=== PATIENT | male | born 1955 | race African-American/Black ===

== ENCOUNTER 2017-10-07 20:57 | Inpatient (IN) ==
[2017-10-07] MEDS ORDERED: Ipratropium/Albuterol Neb 3 ML IH ONE (21:13)
[2017-10-07] MEDS ORDERED: methylPREDNISolone 125 MG/2 ML VIAL IVP ONE (21:13)
--- NOTE | 2017-10-07 21:13 | Emergency Department Note ---
Disposition Clinical Impression: Acute exacerbation of chronic obstructive airways disease Community acquired pneumonia Qualifiers: Laterality: unspecified laterality Qualified Code(s): J18.9 - Pneumonia, unspecified organism Disposition: Admitted As Inpatient Condition: Good Referrals: Jourdan Sharma MD [Primary Care Provider] - Forms: ED Satisfaction Letter Time of Disposition: 21:56 SOB HPI - General Chief Complaint: ED Shortness of Breath/Dyspnea Stated Complaint: ashely Time Seen by Provider: 10/07/17 21:10 Source: patient Limitations: no limitations Nursing Notes Reviewed: Yes Vital Signs Reviewed: Yes - History of Present Illness 61-year-old with history COPD comes in with increasing shortness of breath. Pt Subjective Complaint: shortness of breath, cough Onset (ago): week(s) Context: recent illness Severity: moderate Consistency/Duration: constant Improves with: nothing Worsens with: exertion Known history of: COPD Associated symptoms: Reports: cough Treatment prior to arrival: none Cough present: Yes Cough Description: Involuntary Cough Frequency: Intermittent - Related Data Previous Rx's Medication Instructions Recorded Albuterol Sulfate [Proair Hfa] 1 puff IH Q6H #1 inh 06/05/16 Azithromycin [Azithromycin 6-Tab 250 mg PO PER PKG DI #6 tab 06/05/16 Pack] Levofloxacin [Levaquin] 750 mg PO DAILY #7 tablet 06/05/16 predniSONE [PredniSONE] 20 mg PO BIDWM #10 tablet 06/05/16 DiphenhydraMINE [Benadryl] 25 mg PO Q6HR #30 capsule 06/21/16 Naproxen [Naprosyn] 500 mg PO BID #20 tablet 06/21/16 cephALEXin [Keflex] 500 mg PO QID #40 capsule 06/21/16 traMADol [Ultram] 50 mg PO Q6HR #12 tablet 06/21/16 Albuterol Sulfate [Albuterol 1 - 2 puff IH Q6HR #1 hfa.aer.ad 10/14/16 Inhaler] Azithromycin [Azithromycin 6-Tab 250 mg PO PER PKG DI #6 tab 10/14/16 Pack] predniSONE [PredniSONE] 60 mg PO DAILY 5 Days tablet 10/14/16 Benzonatate [Tessalon] 100 mg PO TID #10 capsule 11/01/16 HYDROcodone BIT/Homatropine LQ 5 mg PO HS #30 syrup 11/01/16 [Hycodan Syrup] predniSONE [Prednisone] 50 mg PO DAILY #5 tablet 11/01/16 Albuterol Sulfate [Albuterol 2 puff IH Q4HR #1 hfa.aer.ad 12/12/16 Inhaler] Levofloxacin [Levaquin] 750 mg PO DAILY #5 tablet 12/12/16 predniSONE [PredniSONE] 40 mg PO DAILY #10 tablet 12/12/16 Clindamycin HCl 300 mg PO TID #21 capsule 02/09/17 HYDROcodone/Acet 5/325 mg [[place] 1 tab PO Q6H PRN #10 tab 02/09/17 5-325 mg] Ondansetron HCl [Zofran] 4 mg PO Q8HR #12 tablet 05/28/17 Polymyxn-B/Trimeth Opth Drops 2 drop RIGHT EYE QID 7 Days bottle 07/28/17 [Polytrim Opth Drops] Albuterol Sulfate [Albuterol 2 puff IH Q4HR PRN #1 inhaler 09/18/17 Inhaler] Azithromycin [Azithromycin 6-Tab 250 mg PO PER PKG DI #6 tab 09/18/17 Pack] PredniSONE [Deltasone] 20 mg PO BID #10 tablet 09/18/17 Benzonatate [Tessalon] 100 mg PO TID PRN #15 capsule 09/30/17 Ibuprofen 800 mg PO Q8H PRN #12 tablet 09/30/17 Allergies Allergy/AdvReac Type Severity Reaction Status Date / Time aspirin Allergy Hives Verified 09/18/17 11:36 All systems ED: reviewed and negative except as stated. Constitutional: Denies: fever, chills, weakness, weight change Eyes: Denies: eye pain, eye discharge, vision change ENT ED: Denies: ear pain, throat pain, dental pain, hearing loss, epistaxis, congestion, dysphagia Cardiovascular: Denies: chest pain, palpitations, dyspnea on exertion, edema, syncope Respiratory: Reports: cough, dyspnea, wheezes. Denies: hemoptysis, stridor Gastrointestinal: Denies: abdominal pain, nausea, vomiting, diarrhea, constipation, hematemesis, melena, hematochezia Genitourinary: Denies: urgency, dysuria, frequency, hematuria Musculoskeletal: Denies: back pain, neck pain, arthralgia, myalgia Integumentary: Denies: rash, abrasion, lesions Neurological: Denies: headache, weakness, numbness, paresthesias, confusion, abnormal gait, vertigo Psychiatric: Denies: anxiety, depression, suicidal thoughts, homicidal thoughts , auditory hallucinations, visual hallucinations Endocrine: Denies: fatigue Hematological/Lymphatic: Denies: easy bleeding, easy bruising Allergic/Immunologic: Denies: facial swelling, urticaria Past Medical History - Past Medical History Medical history: Reports: COPD, diabetes, GERD, hypertension Psychiatric history: Reports: no psych history - Social History Smoking Status: Current every day smoker Smokeless Tobacco Status: No Alcohol use: Reports: occasionally Drug use: Reports: none Physical Exam - General Limitations: no limitations General appearance: alert, in no apparent distress - Head Head exam: atraumatic, normocephalic, normal inspection - Eye Eye exam: Present: normal appearance, PERRL, EOMI - ENT ENT exam: normal exam, normal oropharynx, mucous membranes moist - Neck Neck exam: Present: normal inspection, full ROM, trachea midline - Chest Chest inspection: Present: normal inspection, symmetric chest wall rise - Respiratory Respiratory exam: Present: respiratory distress, wheezes - Cardiovascular Cardiovascular exam: Present: regular rate, normal rhythm, normal heart sounds - Abdominal Exam Abdominal exam: Present: soft, Non-Tender. Absent: tenderness, distention, guarding, rebound, rigidity - Extremities Exam Extremities exam: Present: normal inspection, full ROM. Absent: tenderness, pedal edema - Expanded Lower Extremity Exam Neurovascular/Tendon exam: Absent: motor deficit, sensory deficit, tendon deficit Gait: observed and normal - Back Exam Back exam: Present: normal inspection, full ROM. Absent: tenderness - Neurological Exam Neurological exam: Present: alert, oriented X3 - Psychiatric Psychiatric exam: Present: normal affect, normal mood - Skin Skin exam: Present: warm, dry, intact, normal color Course - Reevaluation(s) Reevaluation #1: The 11-year-old COPD cough congestion. Chest x-ray shows pneumonia white count 20 ,000 patient will be admitted for IV antibiotics. Time: 21:56 - Consultations Consultation #1: Discussed with , it. Time: 21:57 Vital Signs Temperature 98.1 F 10/07/17 21:06 Pulse Rate 114 10/07/17 21:06 Respiratory Rate 22 10/07/17 21:06 Blood Pressure 190/100 12/30/17 21:06 O2 Sat by Pulse Oximetry 93 10/07/17 21:06 Temperature 98.1 F 10/07/17 21:06 Pulse Rate 107 10/07/17 21:23 Respiratory Rate 18 10/07/17 21:23 Blood Pressure 181/99 10/07/17 21:23 O2 Sat by Pulse Oximetry 96 10/07/17 21:23 Oxygen Delivery Oxygen Delivery Room Air Shortness of Breath/Dyspnea - Lab Data Lab results reviewed: Yes I reviewed the patient's lab results. Result diagrams: 10/07/17 21:21 10/07/17 21:21 Lab Results 10/07/17 10/07/17 10/07/17 Range/Units 21:21 21:21 21:21 WBC 20.3 H (4.3-11.1) K/mcL RBC 4.83 (4.19-5.50) M/mcL Hgb 14.9 (12.9-16.9) g/dL Hct 46.4 (37.5-50.1) % MCV 96.1 (83.0-100.0) fL MCH 30.8 (28.0-33.3) pg MCHC 32.1 (31.6-35.5) g/dL RDW 12.5 (11.5-14.5) % Plt Count 190 (140-400) K/mcL MPV 9.5 (9.4-12.4) fL Immature Gran % 0.5 (0-4) % Seg Neutrophils % 89.5 % Lymphocytes % 4.1 % Monocytes % 4.9 % Eosinophils % 0.8 % Basophils % 0.2 % Neutrophils # 18.1 H (1.6-8.9) K/mcL Lymphocytes # 0.8 (0.6-4.6) K/mcL Monocytes # 1.0 (0.0-1.3) K/mcL Eosinophils # 0.2 (0.0-0.6) K/mcL Basophils # 0.1 (0.0-0.2) K/mcL Sodium 131 L (136-145) mEq/L Potassium 4.0 (3.5-5.1) mEq/L Chloride 102 (98-107) mEq/L Carbon Dioxide 23 (23-29) mEq/L BUN 11 (6-20) mg/dL Creatinine 0.99 (0.70-1.30) mg/dL Est GFR ( Amer) > 60 (> 60) Est GFR (Non-Af Amer) > 60 (> 60) BUN/Creatinine Ratio 11 (6-26) Glucose 163 H (70-105) mg/dL Calculated Osmolality 275 L (280-300) Lactic Acid 0.9 (0.5-2.2) mmol/L Calcium 8.9 (8.6-10.3) mg/dL Troponin I (< 0.04) ng/mL B-Natriuretic Peptide (Less than 100) pg/mL 10/07/17 10/07/17 Range/Units 21:21 21:21 WBC (4.3-11.1) K/mcL RBC (4.19-5.50) M/mcL Hgb (12.9-16.9) g/dL Hct (37.5-50.1) % MCV (83.0-100.0) fL MCH (28.0-33.3) pg MCHC (31.6-35.5) g/dL RDW (11.5-14.5) % Plt Count (140-400) K/mcL MPV (9.4-12.4) fL Immature Gran % (0-4) % Seg Neutrophils % % Lymphocytes % % Monocytes % % Eosinophils % % Basophils % % Neutrophils # (1.6-8.9) K/mcL Lymphocytes # (0.6-4.6) K/mcL Monocytes # (0.0-1.3) K/mcL Eosinophils # (0.0-0.6) K/mcL Basophils # (0.0-0.2) K/mcL Sodium (136-145) mEq/L Potassium (3.5-5.1) mEq/L Chloride (98-107) mEq/L Carbon Dioxide (23-29) mEq/L BUN (6-20) mg/dL Creatinine (0.70-1.30) mg/dL Est GFR ( Amer) (> 60) Est GFR (Non-Af Amer) (> 60) BUN/Creatinine Ratio (6-26) Glucose (70-105) mg/dL Calculated Osmolality (280-300) Lactic Acid (0.5-2.2) mmol/L Calcium (8.6-10.3) mg/dL Troponin I < 0.03 (< 0.04) ng/mL B-Natriuretic Peptide 31 (Less than 100) pg/mL - Radiology Data Radiology results reviewed: Yes I reviewed the patient's radiology results. Chest X-Ray 10/07/17 21:13 IMPRESSION: New mild right basilar airspace disease most consistent with pneumonia. D/ / Eulogio Lucas MD / Eulogio Lucas MD Interpreting Provider: Eulogio Lucas MD - EKG Data EKG attestation: Yes I reviewed and interpreted this EKG. EKG shows normal: Reports: sinus rhythm Rate: Reports: tachycardia Rhythm: Reports: NSR Interpretation: Reports: no acute changes
[2017-10-07 21:29] LABS: Basophils # 0.1 K/mcL (0.0-0.2); Basophils % 0.2 %; Eosinophils # 0.2 K/mcL (0.0-0.6); Eosinophils % 0.8 %; Hematocrit 46.4 % (37.5-50.1); Hemoglobin 14.9 g/dL (12.9-16.9); Immature Granulocytes % 0.5 % (0-4); Lymphocytes # 0.8 K/mcL (0.6-4.6); Lymphocytes % 4.1 %; Mean Corpuscular HGB Conc 32.1 g/dL (31.6-35.5); Mean Corpuscular Hemoglobin 30.8 pg (28.0-33.3); Mean Corpuscular Volume 96.1 fL (83.0-100.0); Mean Platelet Volume 9.5 fL (9.4-12.4); Monocytes % 4.9 %; Neutrophils # 18.1 K/mcL (1.6-8.9); Platelet Count 190 K/mcL (140-400); Red Blood Count 4.83 M/mcL (4.19-5.50); Red Cell Distribution Width 12.5 % (11.5-14.5); Segmented Neutrophils % 89.5 %
[2017-10-07 21:47] LABS: BUN/Creatinine Ratio 11 (6-26); Blood Urea Nitrogen 11 mg/dL (6-20); Calcium 8.9 mg/dL (8.6-10.3); Carbon Dioxide 23 mEq/L (23-29); Chloride 102 mEq/L (98-107); Glucose 163 mg/dL (70-105); Osmolality,Calculated 275 (280-300); Sodium 131 mEq/L (136-145); eGFR For African Americans > 60 (> 60); eGFR For Non-African Americans > 60 (> 60)
[2017-10-07] MEDS ORDERED: Azithromycin 500 MG in D5% in Water 250 ML IVPB ONE (21:55)
[2017-10-07] MEDS ORDERED: cefTRIAXone 1,000 MG in Water for inj. (sterile) 10 ML IVP ONE (21:55)
[2017-10-07] MEDS ORDERED: Ibuprofen 600 MG TABLET PO ONE (21:57)
[2017-10-07] MEDS ORDERED: *HR* HYDROcodone/Acet 5/325 mg TABLET PO PRN (22:41)
[2017-10-07] MEDS ORDERED: Naloxone 0.4 MG/ML INJ IVP PRN (22:47)
[2017-10-07] MEDS ORDERED: MOM Conc 10 ML UD.LIQ PO PRN (22:47)
[2017-10-07] MEDS ORDERED: Ondansetron 4 MG/2 ML VIAL IVP PRN (22:47)
[2017-10-07] MEDS ORDERED: Acetaminophen 325 MG TABLET PO PRN (22:47)
[2017-10-07] MEDS ORDERED: Mag Hydrox/Al Hydrox/Simeth 30 ML UDC PO PRN (22:47)
[2017-10-07] MEDS ORDERED: Ipratropium/Albuterol Neb 3 ML IH PRN (22:52)
[2017-10-07] MEDS ORDERED: Azithromycin 500 MG in D5% in Water 250 ML IVPB SCH (23:00)
--- NOTE | 2017-10-07 23:00 | Internal Med History&Physical ---
Date of Encounter: 10/07/17 Time of Encounter: 22:55 Assessment and Plan (1) Community acquired pneumonia Current visit: Yes Status: Acute - blood and sputum cx pending. - continue current abx with rocephin and zithromax. Qualifiers: Laterality: right Lung location: middle lobe of lung Qualified Code(s): J18.1 - Lobar pneumonia, unspecified organism (2) Acute exacerbation of chronic obstructive airways disease Current visit: Yes Status: Acute - IV stroid, bronchodilators. (3) HTN (hypertension) Current visit: No Status: Chronic - BP elevated, continue home meds and adjust meds as needed. Qualifiers: Hypertension type: essential hypertension Qualified Code(s): I10 - Essential (primary) hypertension Internal Medicine - H&P: HPI Admitted From: Emergency Dept Plans for Post Hospital Care: Home History of present illness: Mr. Galvez is a 61 year old male with past medical history of COPD and hypertension who presented to the ED with cough and shortness of breath for a week. Patient was seen in this hospital before [place] for this similar symptoms, ED workup did not show pneumonia, and she was discharged home with oral antibiotics for possible bronchitis. He stated his symptoms never went away with the prescribed medicine. Today he feel he has trouble breathing with worsening cough up yellow whitish mucus, he decided go to hospital. He denies fever, chills, night sweats. He has no chest pain, palpitation, or syncope. At the ED, chest x-ray revealed pneumonia, he will be admitted to the inpatient service for further management. Past Med Surg Social Fam HX - Past Medical History Medical history: COPD, diabetes, GERD, hypertension Psychiatric history: no psych history - Social History Smoking Status: Current every day smoker Smokeless Tobacco Status: No Alcohol use: occasionally Drug use: none Internal Medicine - H&P: Meds Albuterol Sulfate [Proair Hfa] 1 puff IH Q6H #1 inh 06/05/16 [Rx] Azithromycin [Azithromycin 6-Tab Pack] 250 mg PO PER PKG DI #6 tab 06/05/16 [Rx] Levofloxacin [Levaquin] 750 mg PO DAILY #7 tablet 06/05/16 [Rx] predniSONE [PredniSONE] 20 mg PO BIDWM #10 tablet 06/05/16 [Rx] DiphenhydraMINE [Benadryl] 25 mg PO Q6HR #30 capsule 06/21/16 [Rx] Naproxen [Naprosyn] 500 mg PO BID #20 tablet 06/21/16 [Rx] cephALEXin [Keflex] 500 mg PO QID #40 capsule 06/21/16 [Rx] traMADol [Ultram] 50 mg PO Q6HR #12 tablet 06/21/16 [Rx] Albuterol Sulfate [Albuterol Inhaler] 1 - 2 puff IH Q6HR #1 hfa.aer.ad 10/14/16 [Rx] Azithromycin [Azithromycin 6-Tab Pack] 250 mg PO PER PKG DI #6 tab 10/14/16 [Rx] predniSONE [PredniSONE] 60 mg PO DAILY 5 Days tablet 10/14/16 [Rx] Benzonatate [Tessalon] 100 mg PO TID #10 capsule 11/01/16 [Rx] HYDROcodone BIT/Homatropine LQ [Hycodan Syrup] 5 mg PO HS #30 syrup 11/01/16 [Rx ] predniSONE [Prednisone] 50 mg PO DAILY #5 tablet 11/01/16 [Rx] Albuterol Sulfate [Albuterol Inhaler] 2 puff IH Q4HR #1 hfa.aer.ad 12/12/16 [Rx] Levofloxacin [Levaquin] 750 mg PO DAILY #5 tablet 12/12/16 [Rx] predniSONE [PredniSONE] 40 mg PO DAILY #10 tablet 12/12/16 [Rx] Clindamycin HCl 300 mg PO TID #21 capsule 02/09/17 [Rx] HYDROcodone/Acet 5/325 mg [[place] 5-325 mg] 1 tab PO Q6H PRN #10 tab 02/09/17 [Rx ] Ondansetron HCl [Zofran] 4 mg PO Q8HR #12 tablet 05/28/17 [Rx] Polymyxn-B/Trimeth Opth Drops [Polytrim Opth Drops] 2 drop RIGHT EYE QID 7 Days bottle 07/28/17 [Rx] Albuterol Sulfate [Albuterol Inhaler] 2 puff IH Q4HR PRN #1 inhaler 09/18/17 [Rx ] Azithromycin [Azithromycin 6-Tab Pack] 250 mg PO PER PKG DI #6 tab 09/18/17 [Rx] PredniSONE [Deltasone] 20 mg PO BID #10 tablet 09/18/17 [Rx] Benzonatate [Tessalon] 100 mg PO TID PRN #15 capsule 09/30/17 [Rx] Ibuprofen 800 mg PO Q8H PRN #12 tablet 09/30/17 [Rx] 3 Allergy/AdvReac Type Severity Reaction Status Date / Time aspirin Allergy Hives Verified 09/18/17 11:36 All Systems PM: A 10-system review of systems was performed and is negative for pertinent findings except as documented above in the HPI. Review of systems: REVIEW OF SYSTEMS: CONSTITUTIONAL: No weight loss, fever, chills, weakness or fatigue. HEENT: Eyes: No visual loss, blurred vision, double vision or yellow sclerae. Ears, Nose, Throat: No hearing loss, sneezing, congestion, runny nose or sore throat. SKIN: No rash or itching. CARDIOVASCULAR: No chest pain, chest pressure or chest discomfort. No palpitations or edema. RESPIRATORY: see HPI. GASTROINTESTINAL: No anorexia, nausea, vomiting or diarrhea. No abdominal pain or blood. GENITOURINARY: No dysuria, urgency, or frequency. NEUROLOGICAL: No headache, dizziness, syncope, paralysis, ataxia, numbness or tingling in the extremities. No change in bowel or bladder control. MUSCULOSKELETAL: No muscle, back pain, joint pain or stiffness. HEMATOLOGIC: No anemia, bleeding or bruising. LYMPHATICS: No enlarged nodes. No history of splenectomy. PSYCHIATRIC: No history of depression or anxiety. ENDOCRINOLOGIC: No reports of sweating, cold or heat intolerance. No polyuria or polydipsia. - Constitutional Vitals: Temp Pulse Resp BP Pulse Ox 98.1 F 103 20 152/92 95 10/07/17 21:06 10/07/17 22:50 10/07/17 22:50 10/07/17 22:50 10/07/17 22:50 Exam: PHYSICAL EXAMINATION: GENERAL APPEARANCE: The patient is alert, oriented and in no acute distress. HEENT: Head is normocephalic. The sinuses are nontender. Pupils are equal and reactive. The nares are patent. Oropharynx clear without lesions. NECK: Supple without lymphadenopathy. HEART: Regular rate and rhythm. LUNGS: diffuse expiratory wheezes are heard. ABDOMEN: Soft, nontender, nondistended with good bowel sounds heard. Inguinal area is normal. EXTREMITIES: Without cyanosis, clubbing or edema. NEUROLOGICAL: Gross nonfocal. SKIN: Warm and dry without any rash. Internal Med - H&P Results - Labs CBC & Chem 7: 10/07/17 21:21 10/07/17 21:21 - Diagnostic Studies Chest x-ray Additional comments: SINGLE VIEW OF THE CHEST 10/07/2017 9:27 pm COMPARISON: 09/30/2017 HISTORY: ORDERING SYSTEM PROVIDED HISTORY: dyspnea FINDINGS: There is mild right basilar airspace disease, new/ increased from the prior study. Lungs are otherwise clear and the heart size is normal. No pneumothorax or pleural effusion. XR/XR chest 1V portable IMPRESSION: New mild right basilar airspace disease most consistent with pneumonia.
[2017-10-07] MEDS: *HR* Heparin 5,000 UNIT/ML VIAL SQ SCH (23:21)
[2017-10-08] MEDS: Ipratropium/Albuterol Neb 3 ML IH SCH ×6 (00:37→19:54)
[2017-10-08] MEDS ORDERED: *HR* Dextrose 50 % in Water (Syg) 50 ML SYRINGE IVP PRN (01:57)
[2017-10-08] MEDS ORDERED: D5% in Water 1,000 ML IVC PRN (01:57)
[2017-10-08] MEDS ORDERED: Dextrose Gel 15 GM/37.5 ML TUBE PO PRN ×2 (01:57)
[2017-10-08] MEDS ORDERED: Benzonatate 100 MG CAPSULE PO PRN (01:58)
[2017-10-08 02:33] LABS: Hematocrit 44.4 % (37.5-50.1); Hemoglobin 14.6 g/dL (12.9-16.9); Mean Corpuscular HGB Conc 32.9 g/dL (31.6-35.5); Mean Corpuscular Hemoglobin 31.2 pg (28.0-33.3); Mean Corpuscular Volume 94.9 fL (83.0-100.0); Mean Platelet Volume 9.7 fL (9.4-12.4); Platelet Count 182 K/mcL (140-400); Red Blood Count 4.68 M/mcL (4.19-5.50); Red Cell Distribution Width 12.6 % (11.5-14.5)
[2017-10-08 02:46] LABS: Alanine Aminotransferase 28 Units/L (7-52); Albumin 4.1 g/dL (3.5-5.7); Albumin/Globulin Ratio 1.2 (1.1-2.2); Alkaline Phosphatase 58 Units/L (34-104); Aspartate Amino Transferase 14 Units/L (13-39); BUN/Creatinine Ratio 12 (6-26); Bilirubin,Total 0.6 mg/dL (0.3-1.0); Blood Urea Nitrogen 12 mg/dL (6-20); Calcium 9.2 mg/dL (8.6-10.3); Carbon Dioxide 24 mEq/L (23-29); Chloride 100 mEq/L (98-107); Globulin 3.4 g/dL (2.4-3.5); Glucose 375 mg/dL (70-105); Osmolality,Calculated 289 (280-300); Sodium 132 mEq/L (136-145); Total Protein 7.5 g/dL (6.4-8.9); eGFR For African Americans > 60 (> 60); eGFR For Non-African Americans > 60 (> 60)
[2017-10-08 02:52] LABS: Hemoglobin A1C 5.9 %
[2017-10-08] MEDS: *HR* Heparin 5,000 UNIT/ML VIAL SQ SCH ×3 (05:11→22:16)
[2017-10-08] MEDS: methylPREDNISolone 125 MG/2 ML VIAL IVP SCH ×3 (05:11→22:17)
[2017-10-08] MEDS: *HR* Acetylcysteine 20% 600 MG/3 ML ORAL SYRINGE PO SCH ×2 (08:21→22:16)
[2017-10-08] MEDS: Insulin LISPRO 300 UNITS/3 ML VIAL SQ SCH ×4 (08:21→22:18)
[2017-10-08] MEDS: cefTRIAXone 1,000 MG in Water for inj. (sterile) 20 ML 10 ML IVP SCH (08:21)
--- NOTE | 2017-10-08 10:55 | Internal Med Progress Note ---
<Rocío Leo - Last Filed: 10/08/17 10:53> Date of Encounter: 10/08/17 Time of Encounter: 10:53 - Assessment and plan (1) Sepsis Current Visit: Yes Status: Acute Assessment and plan: Due to pneumonia Met sepsis criteria with tachycardia, tachypnea, neutrophilic leukocytosis Blood and sputum cultures pending Legionella and strep pneumoniae antigens pending Qualifiers: Sepsis type: sepsis due to unspecified organism Qualified Code(s): A41.9 - Sepsis, unspecified organism (2) Community acquired pneumonia Current Visit: Yes Status: Acute Assessment and plan: Chest x-ray shows new mild right basilar airspace disease most consistent with pneumonia Rocephin and azithromycin Qualifiers: Laterality: right Lung location: middle lobe of lung Qualified Code(s): J18.1 - Lobar pneumonia, unspecified organism (3) Acute exacerbation of chronic obstructive airways disease Current Visit: Yes Status: Acute Assessment and plan: Solu-Medrol 60 mg q8H duonebs q4H (4) HTN (hypertension) Current Visit: No Status: Chronic Assessment and plan: Chronic, stable Continue home medications Qualifiers: Hypertension type: essential hypertension Qualified Code(s): I10 - Essential (primary) hypertension - Subjective Interval history: The patient states he just finished a breathing treatment but he is still having wheezing. - Constitutional Vitals: Temp Pulse Resp BP Pulse Ox 97.6 F 103 16 146/80 95 10/08/17 07:01 10/08/17 07:01 10/08/17 07:45 10/08/17 07:01 10/08/17 07:45 General appearance: Present: A&O X 3, answers questions appropriately Exam: Patient with sweats, fan on in the room - Head Head exam: Present: atraumatic, normocephalic - Eye Eye exam: Present: PERRL, conjuntiva pink, sclera anicteric Pupils: Present: PERRL - Neck Neck exam general surgery: Present: supple, trachea midline - Respiratory Respiratory exam: Present: wheezes (Expiratory) Additional comments: Nasal cannula is lying on the bed next to patient - Cardiovascular Cardiovascular exam: Present: RRR, +S1, +S2. Absent: diastolic murmur, gallop, rubs, systolic murmur - GI/Abdominal GI/Abdominal exam: Present: normal bowel sounds, soft, no peritoneal signs. Absent: distended, tenderness - Extremities Exam Extremities exam: Present: warm. Absent: pedal edema, tenderness Additional comments: Posterior tibial pulses palpable and symmetric - Neurological Exam Neurological exam: Present: CN II-XII intact, oriented X3, no focal deficits. Absent: pronater drift, facial droop, speech deficit - Skin Skin exam: Present: dry, intact Internal Medicine: Result - Labs CBC & Chem 7: 10/08/17 02:22 10/08/17 02:22 Labs: Short CBC 10/08/17 Range/Units 02:22 WBC 21.5 H (4.3-11.1) K/mcL Hgb 14.6 (12.9-16.9) g/dL Hct 44.4 (37.5-50.1) % Plt Count 182 (140-400) K/mcL BMP 10/08/17 02:22 Sodium 132 L Potassium 4.0 Chloride 100 Carbon Dioxide 24 BUN 12 Creatinine 1.04 Glucose 375 H Calcium 9.2 Liver Function 10/08/17 Range/Units 02:22 Total Bilirubin 0.6 (0.3-1.0) mg/dL AST 14 (13-39) Units/L ALT 28 (7-52) Units/L Alkaline Phosphatase 58 (34-104) Units/L Albumin 4.1 (3.5-5.7) g/dL Consult Discharge Plan - Plan Referrals: Jourdan Sharma MD [Primary Care Provider] - <Noman Batista - Last Filed: 10/08/17 19:10> Date of Encounter: 10/08/17 - Assessment and plan (1) Sepsis Current Visit: Yes Status: Suspected Qualifiers: Sepsis type: Pneumococcus Qualified Code(s): A40.3 - Sepsis due to Streptococcus pneumoniae (2) Community acquired pneumonia Current Visit: Yes Status: Acute Qualifiers: Laterality: right Lung location: middle lobe of lung Qualified Code(s): J18.1 - Lobar pneumonia, unspecified organism (3) HTN (hypertension) Current Visit: No Status: Chronic Qualifiers: Hypertension type: essential hypertension Qualified Code(s): I10 - Essential (primary) hypertension (4) Acute exacerbation of chronic obstructive airways disease Current Visit: Yes Status: Acute (5) Diabetes Current Visit: Yes Status: Acute Qualifiers: Diabetes mellitus type: type 2 Diabetes mellitus complication status: with unspecified complications Diabetes mellitus medical terminologist insulin use: unspecified long-term insulin use status Qualified Code(s): E11.8 - Type 2 diabetes mellitus with unspecified complications - Constitutional Vitals: Temp Pulse Resp BP Pulse Ox 97.8 F 114 17 144/87 95 10/08/17 18:12 10/08/17 18:12 10/08/17 18:12 10/08/17 18:12 10/08/17 18:12 Internal Medicine: Result - Labs CBC & Chem 7: 10/08/17 02:22 10/08/17 02:22 Labs: Short CBC 10/08/17 Range/Units 02:22 WBC 21.5 H (4.3-11.1) K/mcL Hgb 14.6 (12.9-16.9) g/dL Hct 44.4 (37.5-50.1) % Plt Count 182 (140-400) K/mcL BMP 10/08/17 02:22 Sodium 132 L Potassium 4.0 Chloride 100 Carbon Dioxide 24 BUN 12 Creatinine 1.04 Glucose 375 H Calcium 9.2 Liver Function 10/08/17 Range/Units 02:22 Total Bilirubin 0.6 (0.3-1.0) mg/dL AST 14 (13-39) Units/L ALT 28 (7-52) Units/L Alkaline Phosphatase 58 (34-104) Units/L Albumin 4.1 (3.5-5.7) g/dL - Attending Attestation I examined this patient and my medical decision-making was reviewed with the Resident Physician on 10/08/17. I agree with the documented findings, disposition and treatment plan as described except to the extent set forth below. Mr Galvez is currently admitted for sepsis related to pneumonia. He remains moderate to high risk due to potential for worsening respiratory status. Mr Galvez is resting comfortably. No pain at this time. Breathing is OK. Heart rate doing better. No GI issues. Exam Alert. Comfortable Mucus membranes dry Heart reg Scant wheeze Abd soft I/P 1. Sepsis 2. PNA Further diagnoses and plan as above.
[2017-10-08] MEDS ORDERED: Azithromycin 500 MG in D5% in Water 250 ML IVPB SCH (21:00)
[2017-10-08] MEDS: Insulin DETEMIR 100 UNIT/ML X5UNITS SQ SCH (22:17)
[2017-10-08] MEDS: Nicotine 21 MG PATCH.TD24 TD SCH (22:22)
[2017-10-08] MEDS: Azithromycin 250 MG TABLET PO SCH (23:34)
[2017-10-09] MEDS: Ipratropium/Albuterol Neb 3 ML IH SCH ×4 (00:01→11:13)
[2017-10-09] MEDS: *HR* Heparin 5,000 UNIT/ML VIAL SQ SCH ×3 (05:09→22:15)
[2017-10-09] MEDS: methylPREDNISolone 125 MG/2 ML VIAL IVP SCH ×3 (05:09→22:15)
[2017-10-09 06:11] LABS: Basophils % 0.1 %; Hematocrit 42.4 % (37.5-50.1); Hemoglobin 13.8 g/dL (12.9-16.9); Immature Granulocytes % 0.6 % (0-4); Lymphocytes # 0.4 K/mcL (0.6-4.6); Lymphocytes % 1.9 %; Mean Corpuscular HGB Conc 32.5 g/dL (31.6-35.5); Mean Corpuscular Hemoglobin 30.9 pg (28.0-33.3); Mean Corpuscular Volume 94.9 fL (83.0-100.0); Mean Platelet Volume 10.2 fL (9.4-12.4); Monocytes # 0.5 K/mcL (0.0-1.3); Monocytes % 2.4 %; Neutrophils # 18.6 K/mcL (1.6-8.9); Platelet Count 206 K/mcL (140-400); Red Blood Count 4.47 M/mcL (4.19-5.50); Red Cell Distribution Width 12.5 % (11.5-14.5)
[2017-10-09 06:26] LABS: BUN/Creatinine Ratio 15 (6-26); Blood Urea Nitrogen 16 mg/dL (6-20); Calcium 9.2 mg/dL (8.6-10.3); Carbon Dioxide 26 mEq/L (23-29); Chloride 101 mEq/L (98-107); Glucose 365 mg/dL (70-105); Osmolality,Calculated 298 (280-300); Potassium 4.1 mEq/L (3.5-5.1); Sodium 136 mEq/L (136-145); eGFR For African Americans > 60 (> 60); eGFR For Non-African Americans > 60 (> 60)
[2017-10-09] MEDS ORDERED: amLODIPine 5 MG TABLET PO ONE (08:36)
[2017-10-09] MEDS: Nicotine 21 MG PATCH.TD24 TD SCH (10:08)
[2017-10-09] MEDS: Lisinopril 20 MG TABLET PO SCH (10:08)
[2017-10-09] MEDS: Azithromycin 250 MG TABLET PO SCH (10:08)
[2017-10-09] MEDS: amLODIPine 5 MG TABLET PO SCH (10:09)
[2017-10-09] MEDS: cefTRIAXone 1,000 MG in Water for inj. (sterile) 20 ML 10 ML IVP SCH (10:10)
[2017-10-09] MEDS: Insulin LISPRO 300 UNITS/3 ML VIAL SQ SCH ×4 (10:13→22:16)
[2017-10-09] MEDS: *HR* Acetylcysteine 20% 600 MG/3 ML ORAL SYRINGE PO SCH ×2 (10:13→22:17)
--- NOTE | 2017-10-09 11:08 | Internal Med Progress Note ---
<Rocío Leo - Last Filed: 10/09/17 11:06> Date of Encounter: 10/09/17 Time of Encounter: 11:06 - Assessment and plan (1) Sepsis Current Visit: Yes Status: Suspected Assessment and plan: Due to pneumonia Met sepsis criteria with tachycardia, tachypnea, neutrophilic leukocytosis Blood culture preliminary no growth sputum cultures pending Legionella and strep pneumoniae antigens pending Qualifiers: Sepsis type: Pneumococcus Qualified Code(s): A40.3 - Sepsis due to Streptococcus pneumoniae (2) Community acquired pneumonia Current Visit: Yes Status: Acute Assessment and plan: Chest x-ray shows new mild right basilar airspace disease most consistent with pneumonia Rocephin and azithromycin Qualifiers: Laterality: right Lung location: middle lobe of lung Qualified Code(s): J18.1 - Lobar pneumonia, unspecified organism (3) Acute exacerbation of chronic obstructive airways disease Current Visit: Yes Status: Acute Assessment and plan: Solu-Medrol 60 mg q8H duonebs q4H (4) HTN (hypertension) Current Visit: No Status: Chronic Assessment and plan: Chronic, stable Continue home medications Qualifiers: Hypertension type: essential hypertension Qualified Code(s): I10 - Essential (primary) hypertension - Subjective Interval history: The patient states he had difficulty with cough last night. He is still having difficulty with wheezing. - Constitutional Vitals: Temp Pulse Resp BP Pulse Ox 97.3 F L 118 16 152/81 96 10/09/17 10:38 10/09/17 10:38 10/09/17 10:38 10/09/17 10:38 10/09/17 10:38 General appearance: Present: A&O X 3, answers questions appropriately - Head Head exam: Present: atraumatic, normocephalic - Eye Eye exam: Present: PERRL, conjuntiva pink, sclera anicteric Pupils: Present: PERRL - Neck Neck exam general surgery: Present: supple, trachea midline - Respiratory Respiratory exam: Present: wheezes (Expiratory) Additional comments: Lungs sounds are tight - Cardiovascular Cardiovascular exam: Present: RRR, +S1, +S2. Absent: diastolic murmur, gallop, rubs, systolic murmur - GI/Abdominal GI/Abdominal exam: Present: normal bowel sounds, soft, no peritoneal signs. Absent: distended, tenderness - Extremities Exam Extremities exam: Present: warm. Absent: pedal edema, tenderness Additional comments: Posterior tibial pulses palpable and symmetric - Neurological Exam Neurological exam: Present: CN II-XII intact, oriented X3, no focal deficits. Absent: pronater drift, facial droop, speech deficit - Skin Skin exam: Present: dry, intact Internal Medicine: Result - Labs CBC & Chem 7: 10/09/17 05:52 10/09/17 05:52 Labs: Short CBC 10/09/17 Range/Units 05:52 WBC 19.6 H (4.3-11.1) K/mcL Hgb 13.8 (12.9-16.9) g/dL Hct 42.4 (37.5-50.1) % Plt Count 206 (140-400) K/mcL Neutrophils # 18.6 H (1.6-8.9) K/mcL BMP 10/09/17 05:52 Sodium 136 Potassium 4.1 Chloride 101 Carbon Dioxide 26 BUN 16 Creatinine 1.04 Glucose 365 H Calcium 9.2 Consult Discharge Plan - Plan Referrals: Jourdan Sharma MD [Primary Care Provider] - <Noman Batista - Last Filed: 10/09/17 18:30> Date of Encounter: 10/09/17 - Assessment and plan (1) Sepsis Current Visit: Yes Status: Suspected Qualifiers: Sepsis type: Pneumococcus Qualified Code(s): A40.3 - Sepsis due to Streptococcus pneumoniae (2) Community acquired pneumonia Current Visit: Yes Status: Acute Qualifiers: Laterality: right Lung location: middle lobe of lung Qualified Code(s): J18.1 - Lobar pneumonia, unspecified organism (3) HTN (hypertension) Current Visit: No Status: Chronic Qualifiers: Hypertension type: essential hypertension Qualified Code(s): I10 - Essential (primary) hypertension (4) Acute exacerbation of chronic obstructive airways disease Current Visit: Yes Status: Acute (5) Diabetes Current Visit: Yes Status: Acute Qualifiers: Diabetes mellitus type: type 2 Diabetes mellitus complication status: with hyperglycemia Diabetes mellitus bed bug exterminator insulin use: without bed bug exterminator use Qualified Code(s): E11.65 - Type 2 diabetes mellitus with hyperglycemia - Constitutional Vitals: Temp Pulse Resp BP Pulse Ox 98.2 F 115 16 160/83 95 10/09/17 16:32 10/09/17 16:32 10/09/17 16:32 10/09/17 16:32 10/09/17 16:32 Internal Medicine: Result - Labs CBC & Chem 7: 10/09/17 05:52 10/09/17 05:52 Labs: Short CBC 10/09/17 Range/Units 05:52 WBC 19.6 H (4.3-11.1) K/mcL Hgb 13.8 (12.9-16.9) g/dL Hct 42.4 (37.5-50.1) % Plt Count 206 (140-400) K/mcL Neutrophils # 18.6 H (1.6-8.9) K/mcL BMP 10/09/17 05:52 Sodium 136 Potassium 4.1 Chloride 101 Carbon Dioxide 26 BUN 16 Creatinine 1.04 Glucose 365 H Calcium 9.2 - Attending Attestation I examined this patient and my medical decision-making was reviewed with the Resident Physician on 10/09/17. I agree with the documented findings, disposition and treatment plan as described except to the extent set forth below. Mr Galvez is currently admitted for sepsis related to pneumonia. He remains moderate to high risk due to potential for worsening respiratory symptoms. Mr Galvez had a lot of coughing last night. He did not sleep well. No fever or chills. No GI issues. Remains tachycardic. Exam Alert. Comfortable at rest Mucus membranes dry Heart tachy and regular Scant end exp wheeze bilaterally Abd soft No edema I/P 1. Sepsis - remains tachy at this time 2. PNA Further diagnoses and plan as above.
[2017-10-09] MEDS: Budesonide/Formoterol 80/4.5 MDI IH SCH ×3 (11:13→23:15)
[2017-10-09] MEDS: Tiotropium 18 MCG inhalation IH SCH (11:14)
[2017-10-09] MEDS: Ipratropium Neb 0.5 MG NEBULIZER IH SCH ×3 (15:58→23:15)
[2017-10-09] MEDS: Levalbuterol Neb 0.63 MG/3 ML IH SCH ×3 (15:59→23:15)
[2017-10-09] MEDS: Insulin DETEMIR 100 UNIT/ML X5UNITS SQ SCH (22:16)
[2017-10-10] MEDS: Ipratropium Neb 0.5 MG NEBULIZER IH SCH ×5 (04:19→20:59)
[2017-10-10] MEDS: Levalbuterol Neb 0.63 MG/3 ML IH SCH ×5 (04:19→20:59)
[2017-10-10] MEDS: methylPREDNISolone 125 MG/2 ML VIAL IVP SCH ×2 (05:14→14:34)
[2017-10-10] MEDS: *HR* Heparin 5,000 UNIT/ML VIAL SQ SCH ×3 (05:14→21:23)
[2017-10-10 07:16] LABS: BUN/Creatinine Ratio 17 (6-26); Blood Urea Nitrogen 16 mg/dL (6-20); Calcium 8.8 mg/dL (8.6-10.3); Carbon Dioxide 24 mEq/L (23-29); Chloride 98 mEq/L (98-107); Glucose 464 mg/dL (70-105); Osmolality,Calculated 295 (280-300); Potassium 4.3 mEq/L (3.5-5.1); Sodium 132 mEq/L (136-145); eGFR For African Americans > 60 (> 60); eGFR For Non-African Americans > 60 (> 60)
[2017-10-10] MEDS: Budesonide/Formoterol 80/4.5 MDI IH SCH ×2 (07:32→20:59)
[2017-10-10] MEDS: Tiotropium 18 MCG inhalation IH SCH (07:34)
[2017-10-10 07:45] LABS: Basophils % 0.1 %; Hematocrit 39.9 % (37.5-50.1); Immature Granulocytes % 0.7 % (0-4); Lymphocytes # 0.4 K/mcL (0.6-4.6); Lymphocytes % 2.5 %; Mean Corpuscular HGB Conc 32.6 g/dL (31.6-35.5); Mean Corpuscular Volume 95.2 fL (83.0-100.0); Mean Platelet Volume 10.6 fL (9.4-12.4); Monocytes # 0.5 K/mcL (0.0-1.3); Monocytes % 3.1 %; Neutrophils # 14.6 K/mcL (1.6-8.9); Platelet Count 227 K/mcL (140-400); Red Blood Count 4.19 M/mcL (4.19-5.50); Red Cell Distribution Width 12.6 % (11.5-14.5); Segmented Neutrophils % 93.6 %
[2017-10-10] MEDS: Insulin LISPRO 300 UNITS/3 ML VIAL SQ SCH ×4 (08:44→21:23)
[2017-10-10] MEDS: cefTRIAXone 1,000 MG in Water for inj. (sterile) 20 ML 10 ML IVP SCH (08:45)
[2017-10-10] MEDS: Nicotine 21 MG PATCH.TD24 TD SCH (08:46)
[2017-10-10] MEDS: Azithromycin 250 MG TABLET PO SCH (08:47)
[2017-10-10] MEDS: amLODIPine 5 MG TABLET PO SCH (08:47)
[2017-10-10] MEDS: Lisinopril 20 MG TABLET PO SCH (08:47)
[2017-10-10 10:38] LABS: Adenovirus Not Detected (Not Detect); Bordetella Pertussis Not Detected (Not Detect); Chlamydophila pneumoniae Not Detected (Not Detect); Coronavirus 229E Not Detected (Not Detect); Coronavirus HKU1 Not Detected (Not Detect); Coronavirus NL63 Not Detected (Not Detect); Coronavirus OC43 Not Detected (Not Detect); Human Metapneumovirus Not Detected (Not Detect); Human Rhinovirus/Enterovirus Not Detected (Not Detect); Influenza A Subtype 2009 H1 Not Detected (Not Detect); Influenza A Untypeable Not Detected (Not Detect); Influenza B Not Detected (Not Detect); Mycoplasma pneumoniae Not Detected (Not Detect); Parainfluenza Virus 1 Not Detected (Not Detect); Parainfluenza Virus 2 Not Detected (Not Detect); Parainfluenza Virus 3 Not Detected (Not Detect); Parainfluenza Virus 4 Not Detected (Not Detect); Respiratory Syncytial Virus Not Detected (Not Detect)
--- NOTE | 2017-10-10 13:18 | Internal Med Progress Note ---
<Rocío Leo - Last Filed: 10/10/17 13:15> Date of Encounter: 10/10/17 Time of Encounter: 13:15 - Assessment and plan (1) Sepsis Current Visit: Yes Status: Suspected Assessment and plan: Due to pneumonia Met sepsis criteria with tachycardia, tachypnea, neutrophilic leukocytosis Blood culture preliminary no growth Legionella and strep pneumoniae antigens negative Still tachypneic; duonebs changed to xopenex and ipratropium Qualifiers: Sepsis type: Pneumococcus Qualified Code(s): A40.3 - Sepsis due to Streptococcus pneumoniae (2) Community acquired pneumonia Current Visit: Yes Status: Acute Assessment and plan: Chest x-ray shows new mild right basilar airspace disease most consistent with pneumonia Rocephin and azithromycin Qualifiers: Laterality: right Lung location: middle lobe of lung Qualified Code(s): J18.1 - Lobar pneumonia, unspecified organism (3) Acute exacerbation of chronic obstructive airways disease Current Visit: Yes Status: Acute Assessment and plan: Solu-Medrol 60 mg q12H xopenex and ipratropium nebs q4H (4) HTN (hypertension) Current Visit: No Status: Chronic Assessment and plan: Chronic, stable Continue home medications Qualifiers: Hypertension type: essential hypertension Qualified Code(s): I10 - Essential (primary) hypertension (5) Diabetes Current Visit: Yes Status: Acute Assessment and plan: A1c 5.9 The patient has been hyperglycemic this admission due to holding of his oral diabetic medications and steroid use Restart oral diabetes medications Qualifiers: Diabetes mellitus type: type 2 Diabetes mellitus complication status: with hyperglycemia Diabetes mellitus intermediate insulin use: without intermediate use Qualified Code(s): E11.65 - Type 2 diabetes mellitus with hyperglycemia - Subjective Interval history: The patient states that his coughing is improved with Robitussin. He still is having some wheezing. - Constitutional Vitals: Temp Pulse Resp BP Pulse Ox 97.8 F 107 18 151/92 94 10/10/17 10:25 10/10/17 10:25 10/10/17 10:25 10/10/17 10:25 10/10/17 10:25 General appearance: Present: A&O X 3, answers questions appropriately - Head Head exam: Present: atraumatic, normocephalic - Eye Eye exam: Present: PERRL, conjuntiva pink, sclera anicteric Pupils: Present: PERRL - Neck Neck exam general surgery: Present: supple, trachea midline - Respiratory Respiratory exam: Present: wheezes (End expiratory) Additional comments: Supplemental oxygen laying on bedside patient - Cardiovascular Cardiovascular exam: Present: +S1, +S2, tachycardia. Absent: diastolic murmur, gallop, irregular rhythm, rubs, systolic murmur - GI/Abdominal GI/Abdominal exam: Present: normal bowel sounds, soft, no peritoneal signs. Absent: distended, tenderness - Extremities Exam Extremities exam: Present: warm. Absent: pedal edema, tenderness Additional comments: Posterior tibial pulses palpable and symmetric - Neurological Exam Neurological exam: Present: CN II-XII intact, oriented X3, no focal deficits. Absent: pronater drift, facial droop, speech deficit - Skin Skin exam: Present: dry, intact Internal Medicine: Result - Labs CBC & Chem 7: 10/10/17 06:07 10/10/17 06:07 Labs: Short CBC 10/10/17 Range/Units 06:07 WBC 15.6 H (4.3-11.1) K/mcL Hgb 13.0 (12.9-16.9) g/dL Hct 39.9 (37.5-50.1) % Plt Count 227 (140-400) K/mcL Neutrophils # 14.6 H (1.6-8.9) K/mcL BMP 10/10/17 06:07 Sodium 132 L Potassium 4.3 Chloride 98 Carbon Dioxide 24 BUN 16 Creatinine 0.96 Glucose 464 H Calcium 8.8 Consult Discharge Plan - Plan Referrals: Jourdan Sharma MD [Primary Care Provider] - 10/18/17 10:15 am () <Noman Batista - Last Filed: 10/10/17 19:13> Date of Encounter: 10/10/17 - Assessment and plan (1) Sepsis Current Visit: Yes Status: Resolved Qualifiers: Sepsis type: Pneumococcus Qualified Code(s): A40.3 - Sepsis due to Streptococcus pneumoniae (2) Community acquired pneumonia Current Visit: Yes Status: Acute Qualifiers: Laterality: right Lung location: middle lobe of lung Qualified Code(s): J18.1 - Lobar pneumonia, unspecified organism (3) HTN (hypertension) Current Visit: No Status: Chronic Qualifiers: Hypertension type: essential hypertension Qualified Code(s): I10 - Essential (primary) hypertension (4) Acute exacerbation of chronic obstructive airways disease Current Visit: Yes Status: Acute (5) Diabetes Current Visit: Yes Status: Acute Qualifiers: Diabetes mellitus type: type 2 Diabetes mellitus complication status: with hyperglycemia Diabetes mellitus director long term care insulin use: without director long term care use Qualified Code(s): E11.65 - Type 2 diabetes mellitus with hyperglycemia - Constitutional Vitals: Temp Pulse Resp BP Pulse Ox 98.3 F 113 14 161/86 96 10/10/17 19:01 10/10/17 19:01 10/10/17 19:01 10/10/17 19:01 10/10/17 19:01 Internal Medicine: Result - Labs CBC & Chem 7: 10/10/17 06:07 10/10/17 06:07 Labs: Short CBC 10/10/17 Range/Units 06:07 WBC 15.6 H (4.3-11.1) K/mcL Hgb 13.0 (12.9-16.9) g/dL Hct 39.9 (37.5-50.1) % Plt Count 227 (140-400) K/mcL Neutrophils # 14.6 H (1.6-8.9) K/mcL BMP 10/10/17 06:07 Sodium 132 L Potassium 4.3 Chloride 98 Carbon Dioxide 24 BUN 16 Creatinine 0.96 Glucose 464 H Calcium 8.8 - Attending Attestation I examined this patient and my medical decision-making was reviewed with the Resident Physician on 10/10/17. I agree with the documented findings, disposition and treatment plan as described except to the extent set forth below. Mr Galvez is currently admitted for sepsis related to PNA. He remains moderate to high risk due to potential for worsening respiratory status. Mr. Galvez is still coughing a lot. He is not bringing up much. No fever or chills. Still tachy today. Able to walk around some. Exam Alert. Mild resp distress Mucus membranes dry Heart tachy and regular Lungs with wheeze on L side Abd soft I/P 1. Sepsis 2. PNA Further diagnoses and plan as above.
[2017-10-10] MEDS: Acetylcysteine 10% 2 ML INHSOL IH SCH ×2 (15:33→20:57)
--- NOTE | 2017-10-10 16:02 | Electrocardiograph Report ---
[address] [address] Test Date: 2017-10-07 Pat Name: Hong Galvez Department: 104 Room: 3A Gender: M Case Management Associate: ANNABELLE : 1955 Requested By: Jeramie Marin Order Number: [id number] Reading MD: Alcides So Measurements Intervals [place] Rate: 110 P: 62 CO: 135 QRS: 35 QRSD: 100 T: 38 QT: 316 QTc: 381 Interpretive Statements SINUS TACHYCARDIA ABNORMAL RHYTHM ECG Electronically Signed On 10-10-2017 16:00:29 EST by Alcides So
[2017-10-10] MEDS: *HR* Metformin 500 MG TABLET PO SCH (18:02)
[2017-10-10] MEDS: Insulin DETEMIR 100 UNIT/ML X5UNITS SQ SCH (21:23)
[2017-10-11] MEDS: Levalbuterol Neb 0.63 MG/3 ML IH SCH ×4 (00:23→11:07)
[2017-10-11] MEDS: Acetylcysteine 10% 2 ML INHSOL IH SCH ×2 (00:23→07:48)
[2017-10-11] MEDS: Ipratropium Neb 0.5 MG NEBULIZER IH SCH ×4 (00:23→11:07)
[2017-10-11] MEDS: methylPREDNISolone 125 MG/2 ML VIAL IVP SCH (03:28)
[2017-10-11] MEDS: *HR* Heparin 5,000 UNIT/ML VIAL SQ SCH (05:41)
[2017-10-11 07:27] LABS: Basophils % 0.2 %; Hemoglobin 13.4 g/dL (12.9-16.9); Immature Granulocytes % 1.3 % (0-4); Lymphocytes # 0.5 K/mcL (0.6-4.6); Lymphocytes % 4.7 %; Mean Corpuscular HGB Conc 33.5 g/dL (31.6-35.5); Mean Corpuscular Hemoglobin 31.2 pg (28.0-33.3); Mean Platelet Volume 10.1 fL (9.4-12.4); Monocytes # 0.5 K/mcL (0.0-1.3); Monocytes % 4.2 %; Platelet Count 219 K/mcL (140-400); Red Cell Distribution Width 12.3 % (11.5-14.5); Segmented Neutrophils % 89.6 %
[2017-10-11 07:31] VITALS: BP 147/81
[2017-10-11 07:39] LABS: BUN/Creatinine Ratio 22 (6-26); Blood Urea Nitrogen 20 mg/dL (6-20); Calcium 8.6 mg/dL (8.6-10.3); Carbon Dioxide 29 mEq/L (23-29); Chloride 98 mEq/L (98-107); Glucose 305 mg/dL (70-105); Osmolality,Calculated 288 (280-300); Potassium 4.3 mEq/L (3.5-5.1); Sodium 132 mEq/L (136-145); eGFR For African Americans > 60 (> 60); eGFR For Non-African Americans > 60 (> 60)
[2017-10-11] MEDS: Budesonide/Formoterol 80/4.5 MDI IH SCH (07:48)
[2017-10-11] MEDS: Tiotropium 18 MCG inhalation IH SCH (07:49)
[2017-10-11] MEDS ORDERED: *HR* SitaGLIPtin 100 MG TABLET PO SCH (09:00)
[2017-10-11] MEDS: Azithromycin 250 MG TABLET PO SCH (09:27)
[2017-10-11] MEDS: *HR* Metformin 500 MG TABLET PO SCH (09:27)
[2017-10-11] MEDS: cefTRIAXone 1,000 MG in Water for inj. (sterile) 20 ML 10 ML IVP SCH (09:27)
[2017-10-11] MEDS: Lisinopril 20 MG TABLET PO SCH (09:27)
[2017-10-11] MEDS: amLODIPine 5 MG TABLET PO SCH (09:27)
[2017-10-11] MEDS: Insulin LISPRO 300 UNITS/3 ML VIAL SQ SCH ×2 (09:28→12:03)
[2017-10-11] MEDS: Nicotine 21 MG PATCH.TD24 TD SCH (09:29)
--- NOTE | 2017-10-11 11:05 | Discharge Summary ---
Date of Encounter: 10/11/17 Time of Encounter: 10:47 - Discharge Diagnosis (1) Sepsis Priority: Primary Status: Resolved Qualifiers: Sepsis type: Pneumococcus Qualified Code(s): A40.3 - Sepsis due to Streptococcus pneumoniae (2) Community acquired pneumonia Priority: Primary Status: Acute Qualifiers: Laterality: right Lung location: middle lobe of lung Qualified Code(s): J18.1 - Lobar pneumonia, unspecified organism (3) HTN (hypertension) Priority: Secondary Status: Chronic Qualifiers: Hypertension type: essential hypertension Qualified Code(s): I10 - Essential (primary) hypertension (4) Acute exacerbation of chronic obstructive airways disease Priority: Primary Status: Acute (5) Diabetes Priority: Secondary Status: Chronic Qualifiers: Diabetes mellitus type: type 2 Diabetes mellitus complication status: with hyperglycemia Diabetes mellitus nursing home insulin use: without nursing home use Qualified Code(s): E11.65 - Type 2 diabetes mellitus with hyperglycemia - Discharge Medications Prescriptions: GuaiFENesin/Dextromethorphan [Robitussin/Dm] 5 ml PO Q4HR PRN #1 bottle PRN Reason: Cough Albuterol Sulfate [Albuterol Inhaler] 2 puff IH Q6HR PRN #1 hfa.aer.ad PRN Reason: Dyspnea amLODIPine [Norvasc] 5 mg PO DAILY #30 tablet Atorvastatin Calcium [Lipitor] 20 mg PO HS #30 tablet Azithromycin [Zithromax] 500 mg PO DAILY #1 tablet Blood Sugar Diagnostic [Accu-Chek Guide Test Strip] 1 each QID #1 bottle Blood-Glucose Meter, Drum-Type [Accu-Chek] 1 each QID #1 kit Buspirone HCl [Buspar] 10 mg PO BID #30 tablet Fluticasone/Salmeterol [Advair 250-50 Diskus] 1 puff IH BID #1 blst.w.dev HYDROcodone/Acet 5/325 mg [[place] 5-325 mg] 1 tab PO Q6H PRN #20 tablet PRN Reason: Pain Insulin DETEMIR [Levemir] 10 unit SQ HS #3 [id number] Lancets 1 each QID #1 bottle Lisinopril [Zestril] 40 mg PO DAILY #30 tablet metFORMIN [Glucophage] 1,000 mg PO BIDWM #120 tablet Montelukast [Singulair] 10 mg PO DAILY #30 tablet Nabumetone 750 mg PO DAILY #30 tablet Nicotine Patch [Nicoderm] 21 mg TD DAILY #14 patch.td24 predniSONE [PredniSONE] 10 mg PO DAILY #30 tablet SitaGLIPtin [Januvia] 100 mg PO DAILY #30 tablet Tiotropium Joseph [Spiriva Respimat] 2 puff IH DAILY #1 mist.inhal Home Medications: Albuterol Sulfate [Albuterol Inhaler] 2 puff IH Q6HR PRN #1 hfa.aer.ad 10/11/17 [Rx] Atorvastatin Calcium [Lipitor] 20 mg PO HS #30 tablet 10/11/17 [Rx] Azithromycin [Zithromax] 500 mg PO DAILY #1 tablet 10/11/17 [Rx] Blood Sugar Diagnostic [Accu-Chek Guide Test Strip] 1 each QID #1 bottle 12/24 [Rx] Blood-Glucose Meter, Drum-Type [Accu-Chek] 1 each QID #1 kit 10/11/17 [Rx] Buspirone HCl [Buspar] 10 mg PO BID #30 tablet 10/11/17 [Rx] Fluticasone/Salmeterol [Advair 250-50 Diskus] 1 puff IH BID #1 blst.w.dev [Rx] GuaiFENesin/Dextromethorphan [Robitussin/Dm] 5 ml PO Q4HR PRN #1 bottle [Rx] HYDROcodone/Acet 5/325 mg [[place] 5-325 mg] 1 tab PO Q6H PRN #20 tablet 10/11/17 [Rx] Insulin DETEMIR [Levemir] 10 unit SQ HS #3 [id number] 10/11/17 [Rx] Lancets 1 each QID #1 bottle 10/11/17 [Rx] Lisinopril [Zestril] 40 mg PO DAILY #30 tablet 10/11/17 [Rx] Montelukast [Singulair] 10 mg PO DAILY #30 tablet 10/11/17 [Rx] Nabumetone 750 mg PO DAILY #30 tablet 10/11/17 [Rx] Nicotine Patch [Nicoderm] 21 mg TD DAILY #14 patch.td24 10/11/17 [Rx] SitaGLIPtin [Januvia] 100 mg PO DAILY #30 tablet 10/11/17 [Rx] Tiotropium Joseph [Spiriva Respimat] 2 puff IH DAILY #1 mist.inhal 10/11/17 [Rx ] amLODIPine [Norvasc] 5 mg PO DAILY #30 tablet 10/11/17 [Rx] metFORMIN [Glucophage] 1,000 mg PO BIDWM #120 tablet 10/11/17 [Rx] predniSONE [PredniSONE] 10 mg PO DAILY #30 tablet 10/11/17 [Rx] Allergies/Adverse Reactions: 3 Allergy/AdvReac Type Severity Reaction Status Date / Time aspirin Allergy Hives Verified 09/18/17 11:36 Date of admission: 10/07/17 22:47 Primary care physician: Jourdan Sharma MD Consults: 10/10/17 10:42 Consult to Embedded Linux Developer [CONS] Stat Reason for SW Consult: finacial concerns Discharging clinician: Noman Batista Anticipated date of discharge: 10/11/17 - Patient Status Disposition: Home, Self-Care Condition: Good Functional capacity at discharge: independent ambulation Overall status at discharge: patient is progressing back to baseline - Discharge Instructions Follow Up With: Jourdan Sharma MD [Primary Care Provider] - 10/18/17 10:15 am () Forms: Work/School Release - Diet and Activity Activity: increase activity as tolerated Diet: advance to your usual diet Hospital course: Mr. Galvez is a 61 year old male presented to ED with complaints of cough and dyspnea. He had multiple ED visits prior to this one. He was evaluated and found to have pneumonia. He subsequently was admitted. Mr Galvez was admitted to med surg with sepsis related to pneumonia. He was started on IV abx. RIP and urinary antigens were negative. He continued to be tachycardic. Meds were adjusted. He continued to have persistent cough and mucomyst was added. Today he has improved symptoms and is ready for discharge home. Pt is homeless and has no insurance. We have arranged for his meds at this time as well as accucheck. He needs to follow up with PCP and pulmonology as he appears to have significant pulmonary disease. - Time Spent with Patient Total time spent providing and/or coordinating discharge services: 45 min - Constitutional Vitals: Temp Pulse Resp BP Pulse Ox 98.0 F 82 18 147/81 95 10/11/17 07:30 10/11/17 07:30 10/11/17 07:49 10/11/17 07:30 10/11/17 07:49 General appearance: Present: A&O X 3, answers questions appropriately - Head Head exam: Present: atraumatic, normocephalic - Eye Eye exam: Present: EOMI, conjuntiva pink - ENT ENT exam: Present: mucous membranes moist - Respiratory Respiratory exam: Present: decreased breath sounds, CTAB Additional comments: Improved aeration - Cardiovascular Cardiovascular exam: Present: RRR. Absent: tachycardia - GI/Abdominal GI/Abdominal exam: Present: soft. Absent: tenderness - Extremities Exam Extremities exam: Present: warm. Absent: pedal edema, tenderness - Neurological Exam Neurological exam: Present: alert, oriented X3, no focal deficits - Skin Skin exam: Present: dry, warm. Absent: rash
[2017-10-11] MEDS ORDERED: predniSONE 20 MG TABLET PO ONE (11:10)
[2017-10-11] MEDS ORDERED: FLUARIX QUAD 2017-18 36MOS UP/PF 0.5 ML SYRINGE IM ONE (11:29)
== END 2017-10-11 12:09 | disposition home or self-care (01) | DRG 871 ==
LOC: 3ANU 20:57 → EMEROO 20:57 → SUATTDRO 22:47 → 3ANU 22:55
PROVIDERS: ADMIT Internal Medicine; ATTEND Internal Medicine

== ENCOUNTER 2018-06-04 05:54 | Observation (INO) ==
[2018-06-04] MEDS ORDERED: Ipratropium/Albuterol Neb 3 ML IH ONE (07:16)
[2018-06-04 07:20] LABS: Basophils # 0.1 K/mcL (0.0-0.2); Basophils % 0.8 %; Eosinophils # 1.1 K/mcL (0.0-0.6); Eosinophils % 14.5 %; Hematocrit 44.9 % (37.5-50.1); Hemoglobin 14.8 g/dL (12.9-16.9); Immature Granulocytes % 0.3 % (0-4); Lymphocytes # 1.6 K/mcL (0.6-4.6); Lymphocytes % 20.7 %; Mean Corpuscular Hemoglobin 30.6 pg (28.0-33.3); Mean Platelet Volume 9.7 fL (9.4-12.4); Monocytes # 0.6 K/mcL (0.0-1.3); Monocytes % 7.4 %; Neutrophils # 4.4 K/mcL (1.6-8.9); Platelet Count 208 K/mcL (140-400); Red Blood Count 4.83 M/mcL (4.19-5.50); Red Cell Distribution Width 12.7 % (11.5-14.5); Segmented Neutrophils % 56.3 %
[2018-06-04 07:34] LABS: Troponin I < 0.03 ng/mL (< 0.04)
[2018-06-04 07:43] LABS: BUN/Creatinine Ratio 13 (6-26); Blood Urea Nitrogen 13 mg/dL (8-23); Carbon Dioxide 23 mEq/L (23-29); Chloride 105 mEq/L (98-107); Glucose 132 mg/dL (70-105); Osmolality,Calculated 286 (280-300); Sodium 137 mEq/L (136-145); eGFR For Non-African Americans > 60 (> 60)
--- NOTE | 2018-06-04 07:43 | Emergency Department Note ---
Disposition Clinical Impression: Acute exacerbation of chronic obstructive airways disease Disposition: Admitted As Inpatient Condition: Good Time of Disposition: 09:08 SOB HPI - General Chief Complaint: ED Shortness of Breath/Dyspnea Stated Complaint: CASS Time Seen by Provider: 06/04/18 06:50 Source: patient Mode of arrival: ambulatory Limitations: no limitations Nursing Notes Reviewed: Yes Vital Signs Reviewed: Yes - History of Present Illness 62-year-old male presents to the emergency department for shortness of breath patient does have history of COPD he has been using his 's oxygen including inhalers and nebulizers he said that does not seem to be helping. This been going on for approximately 2 or 3 months was continuing to get worse over the last week. He states had no fevers. He has been able to cough anything up. He does have bilateral leg swelling that he says is mainly when he is at work. He has no leg pain other than normal pain while at work. He does not see a emergency room rn regularly. Patient does not have any chest pain and no radiation no nausea or vomiting. - Related Data Previous Rx's Medication Instructions Recorded Albuterol Sulfate [Albuterol 2 puff IH Q6HR PRN #1 hfa.aer.ad 10/11/17 Inhaler] Atorvastatin Calcium [Lipitor] 20 mg PO HS #30 tablet 10/11/17 Azithromycin [Zithromax] 500 mg PO DAILY #1 tablet 10/11/17 Blood Sugar Diagnostic [Accu-Chek 1 each QID #1 bottle 10/11/17 Guide Test Strip] Blood-Glucose Meter, Drum-Type 1 each QID #1 kit 10/11/17 [Accu-Chek] Buspirone HCl [Buspar] 10 mg PO BID #30 tablet 10/11/17 Fluticasone/Salmeterol [Advair 1 puff IH BID #1 blst.w.dev 10/11/17 250-50 Diskus] GuaiFENesin/Dextromethorphan 5 ml PO Q4HR PRN #1 bottle 10/11/17 [Robitussin/Dm] HYDROcodone/Acet 5/325 mg [[place] 1 tab PO Q6H PRN #20 tablet 10/11/17 5-325 mg] Insulin DETEMIR [Levemir] 10 unit SQ HS #3 [id number] 10/11/17 Lancets 1 each QID #1 bottle 10/11/17 Lisinopril [Zestril] 40 mg PO DAILY #30 tablet 10/11/17 Montelukast [Singulair] 10 mg PO DAILY #30 tablet 10/11/17 Nabumetone 750 mg PO DAILY #30 tablet 10/11/17 Nicotine Patch [Nicoderm] 21 mg TD DAILY #14 patch.td24 10/11/17 SitaGLIPtin [Januvia] 100 mg PO DAILY #30 tablet 10/11/17 Tiotropium [place] [Spiriva 2 puff IH DAILY #1 mist.inhal 10/11/17 Respimat] amLODIPine [Norvasc] 5 mg PO DAILY #30 tablet 10/11/17 metFORMIN [Glucophage] 1,000 mg PO BIDWM #120 tablet 10/11/17 predniSONE [PredniSONE] 10 mg PO DAILY #30 tablet 10/11/17 Azithromycin [Azithromycin 6-Tab 250 mg PO PER PKG DI #6 tab 05/22/18 Pack] predniSONE [PredniSONE] 40 mg PO DAILY #4 tablet 05/22/18 Allergies Allergy/AdvReac Type Severity Reaction Status Date / Time aspirin Allergy Hives Verified 09/18/17 11:36 All systems ED: reviewed and negative except as stated. Review of Systems: As Per HPI Constitutional: Reports: weakness. Denies: fever, chills, weight change Eyes: Denies: eye pain, eye discharge, vision change ENT ED: Denies: ear pain, throat pain, dental pain, hearing loss, epistaxis, congestion, dysphagia Cardiovascular: Denies: chest pain, palpitations, dyspnea on exertion, edema, syncope Respiratory: Reports: dyspnea, wheezes. Denies: cough, hemoptysis, stridor Gastrointestinal: Denies: abdominal pain, nausea, vomiting, diarrhea, constipation, hematemesis, melena, hematochezia Genitourinary: Denies: urgency, dysuria, frequency, hematuria Musculoskeletal: Denies: back pain, neck pain, arthralgia, myalgia Integumentary: Denies: rash, abrasion, lesions Neurological: Denies: headache, weakness, numbness, paresthesias, confusion, abnormal gait, vertigo Psychiatric: Denies: anxiety, depression, suicidal thoughts, homicidal thoughts , auditory hallucinations, visual hallucinations Endocrine: Denies: fatigue Hematological/Lymphatic: Denies: easy bleeding, easy bruising Allergic/Immunologic: Denies: facial swelling, urticaria Past Medical History - Past Medical History Attestation: Yes The following information was validated with the patient. Source: patient Medical history: Reports: COPD, diabetes, GERD, hypertension Psychiatric history: Reports: no psych history - Social History Smoking Status: Current every day smoker Smokeless Tobacco Status: No Alcohol use: Reports: occasionally Drug use: Reports: none Physical Exam - General Limitations: no limitations General appearance: alert, in no apparent distress - Head Head exam: atraumatic, normocephalic, normal inspection - Eye Eye exam: Present: normal appearance, PERRL, EOMI - ENT ENT exam: normal exam, normal oropharynx, mucous membranes moist - Neck Neck exam: Present: normal inspection, full ROM, trachea midline - Chest Chest inspection: Present: normal inspection, symmetric chest wall rise - Respiratory Respiratory exam: Present: normal lung sounds bilaterally. Absent: respiratory distress, wheezes - Cardiovascular Cardiovascular exam: Present: regular rate, normal rhythm, normal heart sounds - Abdominal Exam Abdominal exam: Present: soft, Non-Tender. Absent: tenderness, distention, guarding, rebound, rigidity - Extremities Exam Extremities exam: Present: normal inspection, full ROM. Absent: tenderness, pedal edema - Expanded Lower Extremity Exam Hip/Pelvis exam: Present: normal inspection, full ROM Upper leg exam: Present: normal inspection, full ROM Knee exam: Present: normal inspection, full ROM Lower leg exam: Present: normal inspection, full ROM Ankle exam: Present: normal inspection, full ROM Foot/toe exam: Present: normal inspection, full ROM Neurovascular/Tendon exam: Absent: motor deficit, sensory deficit, tendon deficit - Back Exam Back exam: Present: normal inspection, full ROM. Absent: tenderness - Neurological Exam Neurological exam: Present: alert, oriented X3 - Skin Skin exam: Present: warm Course Course Narrative: 8-year-old male presents to the emergency prior shortness of breath. We will get basic workup including chest x-ray, EKG, labs including CBC, BMP, BNP, troponin. We will give patient triple DuoNeb treatment as well as IV steroids. We will reevaluate patient after treatments and labs and imaging of his back for disposition. - Consultations Consultation #1: Spoke with the admitting hospitalist Dr. Rojas who agreed to admit the patient to their service. Patient is admitted in stable condition. Time: 09:08 Vital Signs Temperature 97.9 F 06/04/18 05:55 Pulse Rate 86 06/04/18 05:55 Respiratory Rate 18 06/04/18 05:55 Blood Pressure 155/95 06/04/18 05:55 O2 Sat by Pulse Oximetry 94 06/04/18 05:55 Temperature 97.9 F 06/04/18 05:55 Pulse Rate 89 06/04/18 09:37 Respiratory Rate 18 06/04/18 09:37 Blood Pressure 157/90 06/04/18 09:37 O2 Sat by Pulse Oximetry 94 06/04/18 09:37 Oxygen Delivery Oxygen Delivery Room Air Shortness of Breath/Dyspnea - MDM Narrative Medical decision making narrative: Patient presented here with shortness of breath. EKG had no acute changes. The was not having any chest pain. Chest x-ray showed no signs of any acute pneumonia or pneumothorax. Labs are all normal with no acute changes. Did give patient DuoNeb after receiving that he did have less wheezes. A kendall with did not seem to be in distress while here. Auction saturations never dropped below 90% while he was being examined. Overall I think this is an exacerbation of his COPD and poor management with his medications. Will recommend follow-up with emergency room rn and primary care physician for recommendation for COPD medication changes. Did give him Solu-Medrol here. We will admit the patient due to after having the DuoNeb treatment patient still does have wheezing. We will start the patient on levofloxacin prophylactically for COPD exacerbation. Chest X-Ray 06/04/18 06:28 IMPRESSION: No acute findings. D/ / Naresh Garrett / Naresh Garrett Interpreting Provider: Naresh Garrett - Medical Records Medical records reviewed: Yes I reviewed the patient's medical records. - Lab Data Lab results reviewed: Yes I reviewed the patient's lab results. Result diagrams: 06/04/18 06:28 06/04/18 06:28 Lab Results 06/04/18 06/04/18 06/04/18 Range/Units 06:28 06:28 06:28 WBC 7.8 (4.3-11.1) K/mcL RBC 4.83 (4.19-5.50) M/mcL Hgb 14.8 (12.9-16.9) g/dL Hct 44.9 (37.5-50.1) % MCV 93.0 (83.0-100.0) fL MCH 30.6 (28.0-33.3) pg MCHC 33.0 (31.6-35.5) g/dL RDW 12.7 (11.5-14.5) % Plt Count 208 (140-400) K/mcL MPV 9.7 (9.4-12.4) fL Immature Gran % 0.3 (0-4) % Seg Neutrophils % 56.3 % Lymphocytes % 20.7 % Monocytes % 7.4 % Eosinophils % 14.5 % Basophils % 0.8 % Neutrophils # 4.4 (1.6-8.9) K/mcL Lymphocytes # 1.6 (0.6-4.6) K/mcL Monocytes # 0.6 (0.0-1.3) K/mcL Eosinophils # 1.1 H (0.0-0.6) K/mcL Basophils # 0.1 (0.0-0.2) K/mcL Sodium 137 (136-145) mEq/L Potassium 4.0 (3.5-5.1) mEq/L Chloride 105 (98-107) mEq/L Carbon Dioxide 23 (23-29) mEq/L BUN 13 (8-23) mg/dL Creatinine 0.97 (0.70-1.30) mg/dL Est GFR ( Amer) > 60 (> 60) Est GFR (Non-Af Amer) > 60 (> 60) BUN/Creatinine Ratio 13 (6-26) Glucose 132 H (70-105) mg/dL Calculated Osmolality 286 (280-300) Lactic Acid (0.5-2.2) mmol/L Calcium 9.0 (8.6-10.3) mg/dL Troponin I < 0.03 (< 0.04) ng/mL B-Natriuretic Peptide 6 (Less than 100) pg/mL 06/04/18 06/04/18 Range/Units 06:59 08:39 WBC (4.3-11.1) K/mcL RBC (4.19-5.50) M/mcL Hgb (12.9-16.9) g/dL Hct (37.5-50.1) % MCV (83.0-100.0) fL MCH (28.0-33.3) pg MCHC (31.6-35.5) g/dL RDW (11.5-14.5) % Plt Count (140-400) K/mcL MPV (9.4-12.4) fL Immature Gran % (0-4) % Seg Neutrophils % % Lymphocytes % % Monocytes % % Eosinophils % % Basophils % % Neutrophils # (1.6-8.9) K/mcL Lymphocytes # (0.6-4.6) K/mcL Monocytes # (0.0-1.3) K/mcL Eosinophils # (0.0-0.6) K/mcL Basophils # (0.0-0.2) K/mcL Sodium (136-145) mEq/L Potassium (3.5-5.1) mEq/L Chloride (98-107) mEq/L Carbon Dioxide (23-29) mEq/L BUN (8-23) mg/dL Creatinine (0.70-1.30) mg/dL Est GFR ( Amer) (> 60) Est GFR (Non-Af Amer) (> 60) BUN/Creatinine Ratio (6-26) Glucose (70-105) mg/dL Calculated Osmolality (280-300) Lactic Acid 1.5 1.2 (0.5-2.2) mmol/L Calcium (8.6-10.3) mg/dL Troponin I (< 0.04) ng/mL B-Natriuretic Peptide (Less than 100) pg/mL - Radiology Data Radiology results reviewed: Yes I reviewed the patient's radiology results. - EKG Data EKG attestation: Yes I reviewed and interpreted this EKG. EKG results narrative: EKG done at 0602 review myself and attending shows sinus rhythm at a rate of 83 , AR interval 141, QRS 106, QTC 398 with a normal axis. No acute ST changes no acute T-wave changes no other signs of ischemia. No signs of WPW/Brugada syndrome/HOCM.
[2018-06-04] MEDS ORDERED: methylPREDNISolone 125 MG/2 ML VIAL IVP ONE (07:48)
[2018-06-04] MEDS ORDERED: Levofloxacin 750 MG/150 ML 750 MG/150 ML BAG IVPB ONE (08:23)
--- NOTE | 2018-06-04 08:25 | Emergency Department Note ---
Disposition Clinical Impression: Acute exacerbation of chronic obstructive airways disease Disposition: Admitted As Inpatient Condition: Good General Adult HPI - General Chief complaint: ED Shortness of Breath/Dyspnea Stated complaint: CASS Time Seen by Provider: 06/04/18 06:50 Source: patient Mode of arrival: ambulatory Limitations: no limitations - History of Present Illness Pain Scale: 0 - Related Data Previous Rx's Medication Instructions Recorded Albuterol Sulfate [Albuterol 2 puff IH Q6HR PRN #1 hfa.aer.ad 10/11/17 Inhaler] Atorvastatin Calcium [Lipitor] 20 mg PO HS #30 tablet 10/11/17 Azithromycin [Zithromax] 500 mg PO DAILY #1 tablet 10/11/17 Blood Sugar Diagnostic [Accu-Chek 1 each QID #1 bottle 10/11/17 Guide Test Strip] Blood-Glucose Meter, Drum-Type 1 each QID #1 kit 10/11/17 [Accu-Chek] Buspirone HCl [Buspar] 10 mg PO BID #30 tablet 10/11/17 Fluticasone/Salmeterol [Advair 1 puff IH BID #1 blst.w.dev 10/11/17 250-50 Diskus] GuaiFENesin/Dextromethorphan 5 ml PO Q4HR PRN #1 bottle 10/11/17 [Robitussin/Dm] HYDROcodone/Acet 5/325 mg [[place] 1 tab PO Q6H PRN #20 tablet 10/11/17 5-325 mg] Insulin DETEMIR [Levemir] 10 unit SQ HS #3 [id number] 10/11/17 Lancets 1 each QID #1 bottle 10/11/17 Lisinopril [Zestril] 40 mg PO DAILY #30 tablet 10/11/17 Montelukast [Singulair] 10 mg PO DAILY #30 tablet 10/11/17 Nabumetone 750 mg PO DAILY #30 tablet 10/11/17 Nicotine Patch [Nicoderm] 21 mg TD DAILY #14 patch.td24 10/11/17 SitaGLIPtin [Januvia] 100 mg PO DAILY #30 tablet 10/11/17 Tiotropium [place] [Spiriva 2 puff IH DAILY #1 mist.inhal 10/11/17 Respimat] amLODIPine [Norvasc] 5 mg PO DAILY #30 tablet 10/11/17 metFORMIN [Glucophage] 1,000 mg PO BIDWM #120 tablet 10/11/17 predniSONE [PredniSONE] 10 mg PO DAILY #30 tablet 10/11/17 Azithromycin [Azithromycin 6-Tab 250 mg PO PER PKG DI #6 tab 05/22/18 Pack] predniSONE [PredniSONE] 40 mg PO DAILY #4 tablet 05/22/18 Allergies Allergy/AdvReac Type Severity Reaction Status Date / Time aspirin Allergy Hives Verified 09/18/17 11:36 Constitutional: Reports: weakness. Denies: fever, chills, weight change Eyes: Denies: eye pain, eye discharge, vision change ENT ED: Denies: ear pain, throat pain, dental pain, hearing loss, epistaxis, congestion, dysphagia Cardiovascular: Denies: chest pain, palpitations, dyspnea on exertion, edema, syncope Respiratory: Reports: dyspnea, wheezes. Denies: cough, hemoptysis, stridor Gastrointestinal: Denies: abdominal pain, nausea, vomiting, diarrhea, constipation, hematemesis, melena, hematochezia Genitourinary: Denies: urgency, dysuria, frequency, hematuria Musculoskeletal: Denies: back pain, neck pain, arthralgia, myalgia Integumentary: Denies: rash, abrasion, lesions Neurological: Denies: headache, weakness, numbness, paresthesias, confusion, abnormal gait, vertigo Psychiatric: Denies: anxiety, depression, suicidal thoughts, homicidal thoughts , auditory hallucinations, visual hallucinations Endocrine: Denies: fatigue Hematological/Lymphatic: Denies: easy bleeding, easy bruising Allergic/Immunologic: Denies: facial swelling, urticaria Past Medical History - Past Medical History Medical history: Reports: COPD, diabetes, GERD, hypertension Psychiatric history: Reports: no psych history - Social History Smoking Status: Current every day smoker Smokeless Tobacco Status: No Alcohol use: Reports: occasionally Drug use: Reports: none Physical Exam - General Limitations: no limitations General appearance: alert, in no apparent distress Course Vital Signs Temperature 97.9 F 06/04/18 05:55 Pulse Rate 86 06/04/18 05:55 Respiratory Rate 18 06/04/18 05:55 Blood Pressure 155/95 06/04/18 05:55 O2 Sat by Pulse Oximetry 94 06/04/18 05:55 Temperature 97.9 F 06/04/18 05:55 Pulse Rate 89 06/04/18 09:37 Respiratory Rate 18 06/04/18 09:37 Blood Pressure 157/90 06/04/18 09:37 O2 Sat by Pulse Oximetry 94 06/04/18 09:37 Oxygen Delivery Oxygen Delivery Room Air Medical Decision Making - Lab Data Result diagrams: 06/04/18 06:28 06/04/18 06:28 Lab Results 06/04/18 06/04/18 06/04/18 Range/Units 06:28 06:28 06:28 WBC 7.8 (4.3-11.1) K/mcL RBC 4.83 (4.19-5.50) M/mcL Hgb 14.8 (12.9-16.9) g/dL Hct 44.9 (37.5-50.1) % MCV 93.0 (83.0-100.0) fL MCH 30.6 (28.0-33.3) pg MCHC 33.0 (31.6-35.5) g/dL RDW 12.7 (11.5-14.5) % Plt Count 208 (140-400) K/mcL MPV 9.7 (9.4-12.4) fL Immature Gran % 0.3 (0-4) % Seg Neutrophils % 56.3 % Lymphocytes % 20.7 % Monocytes % 7.4 % Eosinophils % 14.5 % Basophils % 0.8 % Neutrophils # 4.4 (1.6-8.9) K/mcL Lymphocytes # 1.6 (0.6-4.6) K/mcL Monocytes # 0.6 (0.0-1.3) K/mcL Eosinophils # 1.1 H (0.0-0.6) K/mcL Basophils # 0.1 (0.0-0.2) K/mcL Sodium 137 (136-145) mEq/L Potassium 4.0 (3.5-5.1) mEq/L Chloride 105 (98-107) mEq/L Carbon Dioxide 23 (23-29) mEq/L BUN 13 (8-23) mg/dL Creatinine 0.97 (0.70-1.30) mg/dL Est GFR ( Amer) > 60 (> 60) Est GFR (Non-Af Amer) > 60 (> 60) BUN/Creatinine Ratio 13 (6-26) Glucose 132 H (70-105) mg/dL Calculated Osmolality 286 (280-300) Lactic Acid (0.5-2.2) mmol/L Calcium 9.0 (8.6-10.3) mg/dL Troponin I < 0.03 (< 0.04) ng/mL B-Natriuretic Peptide 6 (Less than 100) pg/mL 06/04/18 06/04/18 Range/Units 06:59 08:39 WBC (4.3-11.1) K/mcL RBC (4.19-5.50) M/mcL Hgb (12.9-16.9) g/dL Hct (37.5-50.1) % MCV (83.0-100.0) fL MCH (28.0-33.3) pg MCHC (31.6-35.5) g/dL RDW (11.5-14.5) % Plt Count (140-400) K/mcL MPV (9.4-12.4) fL Immature Gran % (0-4) % Seg Neutrophils % % Lymphocytes % % Monocytes % % Eosinophils % % Basophils % % Neutrophils # (1.6-8.9) K/mcL Lymphocytes # (0.6-4.6) K/mcL Monocytes # (0.0-1.3) K/mcL Eosinophils # (0.0-0.6) K/mcL Basophils # (0.0-0.2) K/mcL Sodium (136-145) mEq/L Potassium (3.5-5.1) mEq/L Chloride (98-107) mEq/L Carbon Dioxide (23-29) mEq/L BUN (8-23) mg/dL Creatinine (0.70-1.30) mg/dL Est GFR ( Amer) (> 60) Est GFR (Non-Af Amer) (> 60) BUN/Creatinine Ratio (6-26) Glucose (70-105) mg/dL Calculated Osmolality (280-300) Lactic Acid 1.5 1.2 (0.5-2.2) mmol/L Calcium (8.6-10.3) mg/dL Troponin I (< 0.04) ng/mL B-Natriuretic Peptide (Less than 100) pg/mL Attestation Statement - Attestation Attestation: I examined this patient and my medical decision-making was reviewed with the Resident Physician. I agree with the documented findings, disposition and treatment plan as described except to the extent set forth below. Patient to the ED playing a shortness of breath. Onset 2 weeks ago. Patient was seen 2 weeks ago started on Zithromax and prednisone. He finished the meds but is feeling worse. Coughing up thick phlegm. No fever. On examination he does not appear in any distress. He is not tachypneic. His lungs display diffuse expiratory wheezing. Plan. The patient's workup is essentially negative. Labs unremarkable. Vitals are stable. X-rays clear. We will treat him as a COPD exacerbation that has failed outpatient treatment. Chest X-Ray 06/04/18 06:28 IMPRESSION: No acute findings. D/ / Naresh Garrett / Naresh Garrett Interpreting Provider: Naresh Garrett
[2018-06-04] MEDS ORDERED: Naloxone 0.4 MG/ML INJ IVP PRN (09:54)
[2018-06-04] MEDS ORDERED: Albuterol 2.5 MG/3 ML NEBULIZER IH PRN (10:04)
[2018-06-04] MEDS ORDERED: Acetaminophen 325 MG TABLET PO PRN (10:04)
--- NOTE | 2018-06-04 10:38 | Internal Med History&Physical ---
Date of Encounter: 06/04/18 Time of Encounter: 10:00 Internal Medicine - H&P: HPI Chief complaint: Shortness of breath Admitted From: Emergency Dept Plans for Post Hospital Care: Home History of present illness: Mr. Galvez is a 62 year old male patient with history of COPD, diabetes who presented to the ER with complaints of shortness of breath. He has been having similar symptoms off and on for the past couple of months. He was seen in the ER here 2 weeks back for similar complaints and was discharged on a steroid course and antibiotics. Patient does not see a supervisor grinding but has been using his 's inhalers and nebulizers at home without improvement in his symptoms. He denies any fevers or chills. His main concern is his cough which seems to be persistent and getting worse. He reports pleuritic chest pain after intense bouts of coughing. Minimal sputum production. No fevers or chills. No nausea or vomiting. Past Med Surg Social Fam HX - Past Medical History Attestation: Yes The following information was validated with the patient. Source: patient Medical history: COPD, diabetes, GERD, hypertension Additional medical history: allergies Psychiatric history: no psych history - Past Surgical History Additional surgical history: heart cath - Social History Smoking Status: Current every day smoker Packs per day: 1/2 Smokeless Tobacco Status: No Alcohol use: occasionally Drug use: none - Family History Mother Living Status: Hx Family Cancer: Yes Father Living Status: Hx Family Cancer: Yes Brother Living Status: Hx Family Cancer: Yes Internal Medicine - H&P: Meds Albuterol Sulfate [Albuterol Inhaler] 2 puff IH Q6HR PRN #1 hfa.aer.ad 10/11/17 [Rx] Atorvastatin Calcium [Lipitor] 20 mg PO HS #30 tablet 10/11/17 [Rx] Azithromycin [Zithromax] 500 mg PO DAILY #1 tablet 10/11/17 [Rx] Blood Sugar Diagnostic [Accu-Chek Guide Test Strip] 1 each QID #1 bottle 12/24 [Rx] Blood-Glucose Meter, Drum-Type [Accu-Chek] 1 each QID #1 kit 10/11/17 [Rx] Buspirone HCl [Buspar] 10 mg PO BID #30 tablet 10/11/17 [Rx] Fluticasone/Salmeterol [Advair 250-50 Diskus] 1 puff IH BID #1 blst.w.dev [Rx] GuaiFENesin/Dextromethorphan [Robitussin/Dm] 5 ml PO Q4HR PRN #1 bottle [Rx] HYDROcodone/Acet 5/325 mg [[place] 5-325 mg] 1 tab PO Q6H PRN #20 tablet 10/11/17 [Rx] Insulin DETEMIR [Levemir] 10 unit SQ HS #3 [id number] 10/11/17 [Rx] Lancets 1 each MC QID #1 bottle 10/11/17 [Rx] Lisinopril [Zestril] 40 mg PO DAILY #30 tablet 10/11/17 [Rx] Montelukast [Singulair] 10 mg PO DAILY #30 tablet 10/11/17 [Rx] Nabumetone 750 mg PO DAILY #30 tablet 10/11/17 [Rx] Nicotine Patch [Nicoderm] 21 mg TD DAILY #14 patch.td24 10/11/17 [Rx] SitaGLIPtin [Januvia] 100 mg PO DAILY #30 tablet 10/11/17 [Rx] Tiotropium [place] [Spiriva Respimat] 2 puff IH DAILY #1 mist.inhal 10/11/17 [Rx ] amLODIPine [Norvasc] 5 mg PO DAILY #30 tablet 10/11/17 [Rx] metFORMIN [Glucophage] 1,000 mg PO BIDWM #120 tablet 10/11/17 [Rx] predniSONE [PredniSONE] 10 mg PO DAILY #30 tablet 10/11/17 [Rx] Azithromycin [Azithromycin 6-Tab Pack] 250 mg PO PER PKG DI #6 tab 05/22/18 [Rx] predniSONE [PredniSONE] 40 mg PO DAILY #4 tablet 05/22/18 [Rx] 3 Allergy/AdvReac Type Severity Reaction Status Date / Time aspirin Allergy Hives Verified 09/18/17 11:36 All Systems PM: A 10-system review of systems was performed and is negative for pertinent findings except as documented above in the HPI. - Constitutional Constitutional: malaise, no chills, no fever(s), no night sweats - EENT Eyes: no change in vision, no discharge, no pain, no photophobia Ears: no ear discharge, no ear pain, no tinnitus Nose, mouth and throat: no dysphagia, no nasal discharge, no neck pain, no sore throat - Cardiovascular Cardiovascular ROS IM: no chest pain, no diaphoresis, no dyspnea, no lightheadedness, no palpitations, no syncope - Respiratory Respiratory: cough, wheezing, no dyspnea, no excessive phlegm production - Gastrointestinal Gastrointestinal: no abdominal pain, no diarrhea, no hematemesis, no hematochezia, no melena, no nausea, no vomiting - Musculoskeletal Musculoskeletal ROS IM: no numbness, no tingling - Integumentary Integumentary IM: no rash, no unusual bruising - Constitutional Vitals: Temp Pulse Resp BP Pulse Ox 98.2 F 86 17 153/82 93 06/04/18 10:13 06/04/18 10:13 06/04/18 10:13 06/04/18 10:13 06/04/18 10:13 General appearance: Present: cooperative, mild distress, A&O X 3, answers questions appropriately Exam: . - Neck Neck exam general surgery: Present: supple, trachea midline. Absent: lymphadenopathy - Respiratory Respiratory exam: Present: decreased breath sounds (Decreased air entry bilaterally), prolonged expiratory phase, wheezes (Bilateral). Absent: accessory muscle use, rales, rhonchi - Cardiovascular Cardiovascular exam: Present: RRR, +S1, +S2. Absent: diastolic murmur, gallop, rubs, systolic murmur - GI/Abdominal GI/Abdominal exam: Present: normal bowel sounds, soft, no peritoneal signs. Absent: distended, tenderness - Extremities Exam Extremities exam: Present: warm, radial pulses palpable and symmetrical. Absent : calf tenderness, cyanotic, pedal edema - Neurological Exam Neurological exam: Present: CN II-XII intact, oriented X3, no focal deficits. Absent: facial droop, speech deficit Internal Med - H&P Results - Labs CBC & Chem 7: 06/04/18 06:28 06/04/18 06:28 - Impressions Impressions Chest X-Ray 06/04/18 06:28 IMPRESSION: No acute findings. D/ / Naresh Garrett / Naresh Garrett Interpreting Provider: Naresh Garrett - Assessment and plan (1) Acute exacerbation of chronic obstructive airways disease Current Visit: Yes Status: Acute Assessment and plan: Patient with acute episode of COPD exacerbation. We will place him on steroids , bronchodilators and O2 supplementation. Monitor vital signs closely. He was recently treated with antibiotic and has not been having much sputum production. He has not had any fevers or chills either. As such at this time I do not see any indication for further antibiotic use. Will assess clinically in the morning and decide about continuing antibiotics. High risk for complications. DVT prophylaxis with subcutaneous heparin. (2) Diabetes Current Visit: Yes Status: Chronic Assessment and plan: Monitor blood sugars. Expect rise in blood sugars with steroid use. Will adjust insulin regimen accordingly. For now place patient on sliding scale insulin and Levemir. Qualifiers: Diabetes mellitus type: type 2 Diabetes mellitus nursing home insulin use: with remote computer terminal operator use Diabetes mellitus complication status: with hyperglycemia Qualified Code(s): E11.65 - Type 2 diabetes mellitus with hyperglycemia; Z79.4 - termite renewal inspector (current) use of insulin (3) HTN (hypertension) Current Visit: Yes Status: Chronic Assessment and plan: Monitor blood pressure. Resume home medications. Qualifiers: Hypertension type: essential hypertension Qualified Code(s): I10 - Essential (primary) hypertension - Time Spent With Patient Total time spent is greater than 50% in coordination of care (as documented) at patient's floor/unit and/or counseling patient:
[2018-06-04] MEDS ORDERED: *HR* Dextrose 50 % in Water (Syg) 50 ML SYRINGE IVP PRN (10:43)
[2018-06-04] MEDS ORDERED: Dextrose Gel 15 GM/37.5 ML TUBE PO PRN ×2 (10:43)
[2018-06-04] MEDS ORDERED: D5% in Water 1,000 ML IVC PRN (10:43)
[2018-06-04 11:27] LABS: Estimated Average Glucose 143 mg/dl; Hemoglobin A1C 6.6 %
[2018-06-04] MEDS: Ipratropium/Albuterol Neb 3 ML IH SCH ×4 (12:05→23:34)
[2018-06-04] MEDS: Insulin LISPRO 300 UNITS/3 ML VIAL SQ SCH ×3 (12:21→20:58)
[2018-06-04] MEDS: methylPREDNISolone 125 MG/2 ML VIAL IVP SCH ×2 (16:09→23:20)
[2018-06-04] MEDS: *HR* Heparin 5,000 UNIT/ML VIAL SQ SCH (17:32)
[2018-06-04] MEDS: Benzonatate 100 MG CAPSULE PO PRN ×2 (17:55→23:19)
[2018-06-04] MEDS: Budesonide/Formoterol 80/4.5 MDI IH SCH (20:07)
[2018-06-04] MEDS: Lisinopril 20 MG TABLET PO SCH (20:57)
[2018-06-04] MEDS: Insulin DETEMIR 100 UNIT/ML X5UNITS SQ SCH (20:58)
[2018-06-05] MEDS: Ipratropium/Albuterol Neb 3 ML IH SCH ×6 (03:56→23:34)
[2018-06-05] MEDS: *HR* Heparin 5,000 UNIT/ML VIAL SQ SCH ×2 (05:08→16:19)
[2018-06-05 06:50] LABS: Basophils % 0.1 %; Hematocrit 45.3 % (37.5-50.1); Hemoglobin 15.2 g/dL (12.9-16.9); Immature Granulocytes % 0.5 % (0-4); Lymphocytes # 0.7 K/mcL (0.6-4.6); Lymphocytes % 6.4 %; Mean Corpuscular HGB Conc 33.6 g/dL (31.6-35.5); Mean Corpuscular Hemoglobin 31.3 pg (28.0-33.3); Mean Corpuscular Volume 93.4 fL (83.0-100.0); Mean Platelet Volume 10.5 fL (9.4-12.4); Monocytes # 0.2 K/mcL (0.0-1.3); Monocytes % 1.9 %; Neutrophils # 10.1 K/mcL (1.6-8.9); Platelet Count 225 K/mcL (140-400); Red Blood Count 4.85 M/mcL (4.19-5.50); Red Cell Distribution Width 12.5 % (11.5-14.5); Segmented Neutrophils % 91.1 %
[2018-06-05 07:11] LABS: BUN/Creatinine Ratio 19 (6-26); Blood Urea Nitrogen 17 mg/dL (8-23); Calcium 9.4 mg/dL (8.6-10.3); Carbon Dioxide 23 mEq/L (23-29); Chloride 103 mEq/L (98-107); Glucose 218 mg/dL (70-105); Osmolality,Calculated 286 (280-300); Potassium 4.3 mEq/L (3.5-5.1); Sodium 134 mEq/L (136-145); eGFR For Non-African Americans > 60 (> 60)
[2018-06-05] MEDS: Budesonide/Formoterol 80/4.5 MDI IH SCH ×2 (07:55→19:45)
[2018-06-05] MEDS: Lisinopril 20 MG TABLET PO SCH (08:38)
[2018-06-05] MEDS: methylPREDNISolone 125 MG/2 ML VIAL IVP SCH ×2 (08:38→16:19)
[2018-06-05] MEDS: Insulin LISPRO 300 UNITS/3 ML VIAL SQ SCH ×4 (08:44→20:35)
[2018-06-05] MEDS ORDERED: Lisinopril 20 MG TABLET PO SCH (09:00)
[2018-06-05] MEDS ORDERED: Azithromycin 250 MG TABLET PO SCH (09:00)
[2018-06-05] MEDS ORDERED: predniSONE 20 MG TABLET PO SCH (09:00)
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
[2018-06-05] MEDS: MethylPREDNISolone 40 MG/ML VIAL IVP SCH (20:24)
[2018-06-05] MEDS: Insulin DETEMIR 100 UNIT/ML X5UNITS SQ SCH (20:34)
[2018-06-06] MEDS: Ipratropium/Albuterol Neb 3 ML IH SCH ×2 (03:59→08:13)
[2018-06-06] MEDS: *HR* Heparin 5,000 UNIT/ML VIAL SQ SCH (05:55)
[2018-06-06] MEDS: MethylPREDNISolone 40 MG/ML VIAL IVP SCH (05:56)
--- NOTE | 2018-06-06 07:58 | Electrocardiograph Report ---
[address] [address] Test Date: 2018-06-04 Pat Name: Hong Galvez Department: 103 Room: 3B Gender: M Cosmetic Consultant: : 1955 Requested By: Lg Jaramillo Order Number: [id number] Reading MD: Vivian So Measurements Intervals [place] Rate: 83 P: 67 ME: 141 QRS: 31 QRSD: 106 T: 41 QT: 358 QTc: 398 Interpretive Statements SINUS RHYTHM Electronically Signed On 06-06-2018 7:56:11 EDT by Vivian So
[2018-06-06] MEDS: Budesonide/Formoterol 80/4.5 MDI IH SCH (08:13)
[2018-06-06] MEDS: Lisinopril 20 MG TABLET PO SCH (09:20)
[2018-06-06] MEDS: Insulin LISPRO 300 UNITS/3 ML VIAL SQ SCH (09:20)
[2018-06-06 10:18] VITALS: BP 129/76
--- NOTE | 2018-06-06 11:26 | Discharge Summary ---
- NOTES TO OUTPATIENT PROVIDER Notes to Outpatient Provider: Pt has been given nebulizer and Duonebs for home. Will need to follow up with pulmonology. Date of Encounter: 06/06/18 Time of Encounter: 11:00 - Discharge Diagnosis (1) Acute exacerbation of chronic obstructive airways disease Priority: Primary Status: Acute Assessment and Plan: Patient with acute episode of COPD exacerbation. Pt reports frequent exacerbations over the last year. Patient has nonproductive cough, denies any fever or chills. Patient failed outpatient antibiotics, at this time do not see any indication for further antibiotic use, there is no leukocytosis, fever, tachypnea or tachycardia. Pt did not qualify for home 02. Continue bronchodilators at home Smoking cessation education completed, he has decided to try Chantix. Mucinex 600 mg by mouth twice a day Prednisone taper (2) HTN (hypertension) Priority: Secondary Status: Chronic Assessment and Plan: Chronic. Well controlled. Continue home medications. Qualifiers: Hypertension type: essential hypertension Qualified Code(s): I10 - Essential (primary) hypertension (3) Diabetes Priority: Secondary Status: Chronic Assessment and Plan: A1c is 6.6%. Well controlled. Continue home medications and accucheck schedule. 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 We discussed the fact that he restart again when he returns back to his normal routine and triggers. Chantix rx for home. (5) Obesity (BMI 30.0-34.9) Priority: Secondary Status: Chronic Assessment and Plan: Chronic. Continue to encourage lifestyle modifications. Hospital course: Mr. Galvez is a 62 year old male Discharge discussed with: patient - Time Spent with Patient Total time spent providing and/or coordinating discharge services: Less than 30 minutes - Discharge Medications Prescriptions: GuaiFENesin ER [Mucinex] 600 mg PO BID PRN #30 tbbp.12hr PRN Reason: Congestion Ipratropium/Albuterol Neb [Duoneb] 3 ml IH Q6H PRN #30 inhsol PRN Reason: Wheezing predniSONE [PredniSONE] 10 mg PO DAILY #31 tablet Varenicline [Chantix] 0.5 mg PO BID #14 tablet Home Medications: Albuterol Sulfate [Albuterol Inhaler] 2 puff IH Q6H PRN 06/04/18 [History] Fluticasone/Salmeterol [Advair 250-50 Diskus] 1 puff IH BID 06/04/18 [History] Lisinopril [Zestril] 40 mg PO DAILY 06/04/18 [History] Metformin HCl [Glucophage] 1,000 mg PO DAILY 06/04/18 [History] Montelukast [Singulair] 10 mg PO HS 06/04/18 [History] SitaGLIPtin [Januvia] 100 mg PO DAILY 06/04/18 [History] Tiotropium [place] [Spiriva Respimat] 2 puff IH DAILY 06/04/18 [History] GuaiFENesin ER [Mucinex] 600 mg PO BID PRN #30 tbbp.12hr 06/06/18 [Rx] Heparin 5,000 unit SQ Q12HCO vial 06/06/18 [Rx] Ipratropium/Albuterol Neb [Duoneb] 3 ml IH Q6H PRN #30 inhsol 06/06/18 [Rx] Varenicline [Chantix] 0.5 mg PO BID #14 tablet 06/06/18 [Rx] predniSONE [PredniSONE] 10 mg PO DAILY #31 tablet 06/06/18 [Rx] Allergies/Adverse Reactions: 3 Allergy/AdvReac Type Severity Reaction Status Date / Time aspirin Allergy Hives Verified 06/04/18 14:45 Date of admission: 06/04/18 09:04 Primary care physician: Jourdan Sharma MD Consults: 06/04/18 09:54 Consult to Nurse Navigator [CONS] Routine Comment: Discharging clinician: Dianne Dempsey Anticipated date of discharge: 06/06/18 - Constitutional Vitals: Temp Pulse Resp BP Pulse Ox 98.6 F 109 16 129/76 98 06/06/18 10:16 06/06/18 10:16 06/06/18 10:16 06/06/18 10:16 06/06/18 10:16 General appearance: Present: cooperative, mild distress, A&O X 3, answers questions appropriately Exam: as above. - Head Head exam: Present: atraumatic, normal inspection, normocephalic - Eye Eye exam: Present: normal appearance, conjuntiva pink, sclera anicteric - Neck Neck exam general surgery: Present: supple, trachea midline. Absent: lymphadenopathy, tenderness - Respiratory Respiratory exam: Present: CTAB, wheezes. Absent: accessory muscle use, chest wall tenderness, rales, respiratory distress, rhonchi - Cardiovascular Cardiovascular exam: Present: RRR, +S1, +S2. Absent: diastolic murmur, gallop, rubs, systolic murmur - GI/Abdominal GI/Abdominal exam: Present: normal bowel sounds, soft. Absent: distended, hepatomegaly, tenderness - Extremities Exam Extremities exam: Present: normal capillary refill, normal inspection, warm, radial pulses palpable and symmetrical. Absent: calf tenderness, cyanotic, pedal edema, tenderness - Neurological Exam Neurological exam: Present: alert, oriented X3, no focal deficits. Absent: facial droop, speech deficit - Skin Skin exam: Present: dry, intact, normal color, warm. Absent: rash - Patient Status Disposition: Home, Self-Care Condition: Good Functional capacity at discharge: independent ambulation Overall status at discharge: patient is back to baseline - Discharge Instructions Follow Up With: [facility] [Provider Group] - 06/20/18 11:15 am Jourdan Sharma MD [Primary Care Provider] - 06/13/18 10:15 am Additional Instructions: Take your medications as directed. Follow up with your PCP in the next 3-5 days for a follow up Stop smoking Return to the ER as needed for any other problems or concerns, or if your symptoms return or worsen. Return to your normal diet and activities as tolerated. - Diet and Activity Activity: increase activity as tolerated Diet: advance to your usual diet, diabetic diet
== END 2018-06-06 12:02 | disposition home or self-care (01) ==
LOC: EMEROOARM 05:54 → 3BNU 05:54
PROVIDERS: ADMIT Internal Medicine; ATTEND Internal Medicine